=== PATIENT | female | born 1970 | race Caucasian/White ===

== ENCOUNTER 2018-10-24 13:30 | Inpatient (IN) | payer OTHER ==
[~2018-10-24] VITALS: Ht 165.1 cm; Wt 124.7 kg
[2018-10-24] MEDS ORDERED: FAMOTIDINE 20 MG/2 ML VIAL IVP ONE (13:45)
[2018-10-24] MEDS ORDERED: IV NORMAL SALINE 1000ML BAG 1,000 ML IV ONE ×2 (13:45→14:30)
[2018-10-24] MEDS ORDERED: ONDANSETRON PF 4 MG/2 ML VIAL. IV ONE (13:45)
--- NOTE | 2018-10-24 13:55 | PHYS DOC ---
Adult General Chief Complaint Chief Complaint: BRADYCARDIA HPI HPI Patient is a 48 year old female who presents with bradycardia. Patient states that she has been experiencing nausea, vomiting, diarrhea, and weakness for the past five days. Patient states that she was evaluated by her primary care physicians this morning for her symptoms where she was found to have a heart rate of 33 and was sent to the ED for further evaluation. Patient states that she has been out of all of her medication except for Xanaflex, Baclofen, Promethazine, and fentanyl patch for the past 36 hours. Patient states that she has been feeling weak and dizzy for the past few days. Patient denies any syncopal episodes. Review of Systems Review of Systems Constitutional: Denies fever or chills Eyes: Denies change in visual acuity, or eye pain HENT: Denies nasal congestion or sore throat Respiratory: Denies cough or shortness of breath Cardiovascular: Denies chest pain or palpitations GI: Reports nausea, vomiting, and diarrhea. : Denies dysuria or hematuria Musculoskeletal: Reports chronic muscle aches and back pain. Integument: Denies rash or skin lesions Neurologic: Denies headache, focal weakness or sensory changes Complete systems were reviewed and found to be within normal limits, except as documented in this note. Current Medications Current Medications Current Medications Medications (Trade) Dose Ordered Sig/Ute Start Time Stop Time Status Last Admin Dose Admin Famotidine (Pepcid Vial) 20 mg 1X ONCE 10/24/18 13:45 10/24/18 14:06 DC 10/24/18 14:29 20 MG Ondansetron HCl (Zofran) 4 mg 1X ONCE 10/24/18 13:45 10/24/18 14:06 DC 10/24/18 14:28 4 MG Sodium Chloride 1,000 ml @ 1,000 mls/hr 1X ONCE 10/24/18 13:45 10/24/18 14:44 DC 10/24/18 14:26 1,000 MLS/HR Allergies Allergies Allergies Coded Allergies Type Severity Reaction Last Updated Verified Penicillins Allergy Intermediate 10/24/18 Yes codeine Allergy Intermediate 10/24/18 Yes doxycycline Allergy Intermediate 10/24/18 Yes meperidine Allergy Intermediate 10/24/18 Yes Physical Exam Physical Exam Constitutional: awake, alert, in no acute distress. HENT: Normocephalic, atraumatic. Mucous membranes moist. Eyes: PERRL,conjunctiva normal, no discharge. Neck: Normal range of motion, no tenderness, supple, no stridor. Cardiovascular: Bradycardic. No murmur Lungs & Thorax: Bilateral breath sounds clear to auscultation Abdomen: Obese. Soft, minimal diffuse tenderness on palpation Skin: Warm, dry, no rash. Back: No midline tenderness, no CVA tenderness. [ Extremities: No tenderness, no cyanosis, ROM intact, no edema. Neurologic: Alert and oriented X 3, normal motor function, normal sensory function, no focal deficits noted. Psychologic: Affect normal. Speech normal. Current Patient Data Vital Signs Vital Signs Date Time Temp Pulse Resp B/P (MAP) Pulse Ox O2 Delivery O2 Flow Rate FiO2 10/24/18 13:30 98.4 38 18 193/92 (125) 96 Room Air 98.4 Lab Values Laboratory Tests Test 10/24/18 13:50 White Blood Count 9.1 x10^3/uL (4.0-11.0) Red Blood Count 4.59 x10^6/uL (3.50-5.40) Hemoglobin 12.4 g/dL (12.0-15.5) Hematocrit 38.4 % (36.0-47.0) Mean Corpuscular Volume 84 fL (79-100) Mean Corpuscular Hemoglobin 27 pg (25-35) Mean Corpuscular Hemoglobin Concent 32 g/dL (31-37) Red Cell Distribution Width 18.7 % (11.5-14.5) H Platelet Count 364 x10^3/uL (140-400) Neutrophils (%) (Auto) 64 % (31-73) Lymphocytes (%) (Auto) 29 % (24-48) Monocytes (%) (Auto) 5 % (0-9) Eosinophils (%) (Auto) 1 % (0-3) Basophils (%) (Auto) 1 % (0-3) Neutrophils # (Auto) 5.9 x10^3uL (1.8-7.7) Lymphocytes # (Auto) 2.7 x10^3/uL (1.0-4.8) Monocytes # (Auto) 0.5 x10^3/uL (0.0-1.1) Eosinophils # (Auto) 0.1 x10^3/uL (0.0-0.7) Basophils # (Auto) 0.0 x10^3/uL (0.0-0.2) Prothrombin Time 13.9 SEC (11.7-14.0) Prothrombin Time INR 1.1 (0.8-1.1) PTT 36 SEC (24-38) Sodium Level 141 mmol/L (136-145) Potassium Level 4.1 mmol/L (3.5-5.1) Chloride Level 103 mmol/L (98-107) Carbon Dioxide Level 25 mmol/L (21-32) Anion Gap 13 (6-14) Blood Urea Nitrogen 11 mg/dL (7-20) Creatinine 0.9 mg/dL (0.6-1.0) Estimated GFR (Cockcroft-Gault) 66.8 BUN/Creatinine Ratio 12 (6-20) Glucose Level 112 mg/dL (70-99) H Calcium Level 9.4 mg/dL (8.5-10.1) Magnesium Level 2.3 mg/dL (1.8-2.4) Total Bilirubin 0.5 mg/dL (0.2-1.0) Aspartate Amino Transferase (AST) 21 U/L (15-37) Alanine Aminotransferase (ALT) 15 U/L (14-59) Alkaline Phosphatase 119 U/L (46-116) H Creatine Kinase 112 U/L (26-192) Creatine Kinase MB (Mass) 0.8 ng/mL (0.0-3.6) Creatine Kinase MB Relative Index 0.7 % (0-4) Troponin I Quantitative < 0.017 ng/mL (0.000-0.055) DI-Nkm-Z-Type Natriuretic Peptide 1518 pg/mL (0-124) H Total Protein 8.5 g/dL (6.4-8.2) H Albumin 4.0 g/dL (3.4-5.0) Albumin/Globulin Ratio 0.9 (1.0-1.7) L Lipase 124 U/L (73-393) Thyroid Stimulating Hormone (TSH) 2.185 uIU/mL (0.358-3.74) Ethyl Alcohol Level < 10 mg/dL (0-10) Laboratory Tests 10/24/18 13:50 Laboratory Tests 10/24/18 13:50 EKG EKG @1337 sinus bradycardia at 40bpm, NO ST elevation Radiology/Procedures Radiology/Procedures [] Course & Med Decision Making Course & Med Decision Making Patient is a 48 year female who presents for bradycardia. Patient treated with Zofran, Pepcid, and 1L of normal saline in the ED. Pertinent Labs and Imaging studies reviewed. (See chart for details) Patient requiring admission for further evaluation and treatment. Discussed with Dr. Simon who is in agreement with admission. Discussed findings and plan with patient and family, who acknowledge understanding and agreement. Dragon Disclaimer Dragon Disclaimer This electronic medical record was generated, in whole or in part, using a voice recognition dictation system. Departure Departure Impression: Primary Impression: Bradycardia Additional Impressions: Nausea vomiting and diarrhea Dehydration Disposition: ADMITTED INPATIENT Admitting Physician: Other (tahira) Condition: GUARDED Critical Care Time Critical care time was 30 minutes which includes time at bedside, spent in discussion of patient's care with specialists and/or family members, with interpretation of laboratory and/or radiological studies and is exclusive of procedures. Problem Qualifiers ALDAIR TERRAZSA DO Oct 24, 2018 13:54
[2018-10-24 14:03] LABS: BASO % 1 % (0-3); EOS # 0.1 x10^3/uL (0.0-0.7); EOS % 1 % (0-3); HEMATOCRIT 38.4 % (36.0-47.0); HEMOGLOBIN 12.4 g/dL (12.0-15.5); LYMPH # 2.7 x10^3/uL (1.0-4.8); LYMPH % 29 % (24-48); MEAN CORPUSCULAR HEMOGLOBIN 27 pg (25-35); MEAN CORPUSCULAR HGB CONC 32 g/dL (31-37); MEAN CORPUSCULAR VOLUME 84 fL (79-100); MONO # 0.5 x10^3/uL (0.0-1.1); MONO % 5 % (0-9); NEUT # 5.9 x10^3uL (1.8-7.7); NEUT % 64 % (31-73); PLATELET COUNT 364 x10^3/uL (140-400); RED BLOOD COUNT 4.59 x10^6/uL (3.50-5.40); RED CELL DISTRIBUTION WIDTH 18.7 % (11.5-14.5); WHITE BLOOD COUNT 9.1 x10^3/uL (4.0-11.0)
[2018-10-24 14:14] LABS: CALCIUM 9.4 mg/dL (8.5-10.1); CREATININE 0.9 mg/dL (0.6-1.0); GFR 66.8; POTASSIUM 4.1 mmol/L (3.5-5.1); PROTHROMBIN TIME PATIENT 13.9 SEC (11.7-14.0)
[2018-10-24 14:20] LABS: ALBUMIN/GLOBULIN RATIO 0.9 (1.0-1.7); MAGNESIUM 2.3 mg/dL (1.8-2.4); TOTAL BILIRUBIN 0.5 mg/dL (0.2-1.0); TOTAL PROTEIN 8.5 g/dL (6.4-8.2)
--- NOTE | 2018-10-24 14:45 | EKG ---
[facility] [address] [place] [address] Test Date: 2018-10-24 Test Time: 13:37:06 Pat Name: MANOHAR SANTANA Department: Room: Gender: F Editorial Manager: FRANSISCA : 1970 Requested By: ALDAIR TERRAZAS Order Number: [id number] Reading MD: Anthony Ames Measurements Intervals [place] Rate: 40 P: 90 WI: 182 QRS: 17 QRSD: 100 T: 32 QT: 558 QTc: 457 Interpretive Statements SINUS BRADYCARDIA VENTRICULAR PREMATURE COMPLEX(ES) NON SPECIFIC QRS ABNORMALITY ABNORMAL ECG RI6.01 No previous ECG available for comparison Electronically Signed On 10-29-2018 13:24:56 CDT by Anthony Ames
--- NOTE | 2018-10-24 15:25 | PDOC2 ---
EMILIE INTERIANO REFINERY OPERATOR [facility] [facility] [facility] 10/24/18 1525: CARDIAC CONSULT DATE OF CONSULT Date of Consult DATE: 10/24/18 TIME: 15:23 REASON FOR CONSULT Reason for Consult: bradycardia REFERRING PHYSICIAN Referring Physician: Rae SOURCE Source: Chart review, Patient HISTORY OF PRESENT ILLNESS HISTORY OF PRESENT ILLNESS This is a pleasant 48 yo female admitted for complains of fatigue. Reports that she went to [facility] and was noted with slow HR and high BP and was told to go to [place] but no room over there so she came to [facility]. Reports that she was been having watery diarrhea now for about 3 days ranging from yellow watery stool to greenish. She does have malabsorptive issues due to gastric bypass but noone significant as this time and had diarrhea stools 10x at least yesterday. Her mouth has been feeling dry and had some dizziness but no passing out. No recent camping or use of antibiotics. Denies any chest pain, SOA, palpitations. She takes about 15 medications but does not recall taking any HTN meds. No DM2 as well. She has had 4 LHC with last one 8 yrs ago due to positive stress test but all of it came back negative for CAD. She has lost significant wt from her gastric bypass with her remote surgery. No hx of arrhythmias, VTE, falls or any injury but has been having nausse, no vomiting and has been having chills but no recorded fever. PAST MEDICAL HISTORY Cardiovascular: No pertinent hx Pulmonary: No pertinent hx CENTRAL NERVOUS SYSTEM: Other (No pertinent history) GI: Other (malabsorptive syndrome ) Heme/Onc: No pertinent hx Hepatobiliary: No pertinent hx Psych: No pertinent hx Musculoskeletal: low back pain, Osteoarthritis Rheumatologic: No pertinent hx Infectious disease: No pertinent hx ENT: No pertinent hx Renal/: No pertinent hx Endocrine: No pertinent hx Dermatology: No pertinent hx PAST SURGICAL HISTORY Past Surgical History: Tonsillectomy, Other (LMD, LHC; gastric bypass) FAMILY HISTORY Family History: Coronary Artery Disease (mother and father premature) SOCIAL HISTORY Smoke: No ALCOHOL: none Drugs: None Lives: with Family CURRENT MEDICATIONS CURRENT MEDICATIONS Current Medications Medications (Trade) Dose Ordered Sig/Ute Route PRN Reason Start Time Stop Time Status Last Admin Dose Admin Sodium Chloride 1,000 ml @ 1,000 mls/hr 1X ONCE IV 10/24/18 13:45 10/24/18 14:44 DC 10/24/18 14:26 Ondansetron HCl (Zofran) 4 mg 1X ONCE IV 10/24/18 13:45 10/24/18 14:06 DC 10/24/18 14:28 Famotidine (Pepcid Vial) 20 mg 1X ONCE IVP 10/24/18 13:45 10/24/18 14:06 DC 10/24/18 14:29 Sodium Chloride 1,000 ml @ 1,000 mls/hr 1X ONCE IV 10/24/18 14:30 10/24/18 15:29 10/24/18 14:33 ALLERGIES ALLERGIES: Coded Allergies: Penicillins (Verified Allergy, Intermediate, 10/24/18) codeine (Verified Allergy, Intermediate, 10/24/18) doxycycline (Verified Allergy, Intermediate, 10/24/18) meperidine (Verified Allergy, Intermediate, 10/24/18) ROS Review of System 14 point ROS evaluated with pertinent positives noted per HPI PHYSICAL EXAM General: Alert, Oriented X3, Cooperative, No acute distress HEENT: Mucous membr. moist/pink Heart: Regular rate (SR/SB), Normal S1, Normal S2, No murmurs Abdomen: Soft, No tenderness Extremities: No cyanosis, No edema Skin: No breakdown, No significant lesion Neuro: Normal speech, Sensation intact Psych/Mental Status: Mental status NL, Mood NL MUSCULOSKELETAL: Osteoarthritic changes both hands VITALS VITALS Vital Signs Date Time Temp Pulse Resp B/P (MAP) Pulse Ox O2 Delivery O2 Flow Rate FiO2 10/24/18 13:30 98.4 38 18 193/92 (125) 96 Room Air 98.4 LABS Lab: Laboratory Tests Test 10/24/18 13:50 White Blood Count 9.1 x10^3/uL (4.0-11.0) Red Blood Count 4.59 x10^6/uL (3.50-5.40) Hemoglobin 12.4 g/dL (12.0-15.5) Hematocrit 38.4 % (36.0-47.0) Mean Corpuscular Volume 84 fL (79-100) Mean Corpuscular Hemoglobin 27 pg (25-35) Mean Corpuscular Hemoglobin Concent 32 g/dL (31-37) Red Cell Distribution Width 18.7 % (11.5-14.5) Platelet Count 364 x10^3/uL (140-400) Neutrophils (%) (Auto) 64 % (31-73) Lymphocytes (%) (Auto) 29 % (24-48) Monocytes (%) (Auto) 5 % (0-9) Eosinophils (%) (Auto) 1 % (0-3) Basophils (%) (Auto) 1 % (0-3) Neutrophils # (Auto) 5.9 x10^3uL (1.8-7.7) Lymphocytes # (Auto) 2.7 x10^3/uL (1.0-4.8) Monocytes # (Auto) 0.5 x10^3/uL (0.0-1.1) Eosinophils # (Auto) 0.1 x10^3/uL (0.0-0.7) Basophils # (Auto) 0.0 x10^3/uL (0.0-0.2) Prothrombin Time 13.9 SEC (11.7-14.0) Prothromb Time International Ratio 1.1 (0.8-1.1) Activated Partial Thromboplast Time 36 SEC (24-38) Sodium Level 141 mmol/L (136-145) Potassium Level 4.1 mmol/L (3.5-5.1) Chloride Level 103 mmol/L (98-107) Carbon Dioxide Level 25 mmol/L (21-32) Anion Gap 13 (6-14) Blood Urea Nitrogen 11 mg/dL (7-20) Creatinine 0.9 mg/dL (0.6-1.0) Estimated GFR (Cockcroft-Gault) 66.8 BUN/Creatinine Ratio 12 (6-20) Glucose Level 112 mg/dL (70-99) Calcium Level 9.4 mg/dL (8.5-10.1) Magnesium Level 2.3 mg/dL (1.8-2.4) Total Bilirubin 0.5 mg/dL (0.2-1.0) Aspartate Amino Transf (AST/SGOT) 21 U/L (15-37) Alanine Aminotransferase (ALT/SGPT) 15 U/L (14-59) Alkaline Phosphatase 119 U/L (46-116) Creatine Kinase 112 U/L (26-192) Creatine Kinase MB (Mass) 0.8 ng/mL (0.0-3.6) Creatine Kinase MB Relative Index 0.7 % (0-4) Troponin I Quantitative < 0.017 ng/mL (0.000-0.055) NX-Wgz-[id number]-Type Natriuretic Peptide 1518 pg/mL (0-124) Total Protein 8.5 g/dL (6.4-8.2) Albumin 4.0 g/dL (3.4-5.0) Albumin/Globulin Ratio 0.9 (1.0-1.7) Lipase 124 U/L (73-393) Ethyl Alcohol Level < 10 mg/dL (0-10) ASSESSMENT/PLAN ASSESSMENT/PLAN 1. Asymptomatic SB: likely due to metabolic issues and contributing HTN. QTc 456 2. HTN urgency 3. Worsening Diarrhea 4. Morbid obesity with notable malabsorptive syndrome with past gastric bypass 5. Polypharmacy: reported 15 meds. Recommendations 1. TSH, TTE 2. IVF have been given in ED 3. Obtain accurate med list 4. Start norvasc and lisinopril. Hydralazine IV PRN. PAWEL YEN MD 10/24/18 2456: CARDIAC CONSULT ASSESSMENT/PLAN ASSESSMENT/PLAN Pt. seen and examined. Agree with above Milk Pickup Driver note. EKG with sinus neftaly. Polypharmacy may be an issue as noted above as she is on multiple pain/psych drugs. No clear indication for pacer at this time with GI issues etc. No syncope which is reassuring. when able, will walk and determine if she has chronotropic response. Event monitor on DC. Thanks EMILIE INTERIANO APRN Oct 24, 2018 15:25 PAWEL YEN MD Oct 24, 2018 18:58
[2018-10-24 16:01] LABS: BARBITURATES NEG (NEG); BENZODIAZEPINES NEG (NEG); CANNABINOIDS NEG (NEG); COCAINE NEG (NEG); METHADONE NEG (NEG); OPIATES NEG (NEG); PHENCYCLIDINE NEG (NEG)
[2018-10-24 16:02] LABS: AMPHETAMINE/METHAMPHETAMINE NEG (NEG)
--- NOTE | 2018-10-24 16:06 | NUR ---
Patient arrived to room 261 via bed from ER at 1606. Patient A&OX4. No complaints of pain. Complaints of diarrhea. Patient neftaly with hypertension. Will continue to monitor.
[2018-10-24 16:15] VITALS: BP 205/84
[2018-10-24 16:19] LABS: BILIRUBIN,URINE NEGATIVE (NEG); CLARITY,URINE CLEAR; COLOR,URINE YELLOW; NITRITE,URINE NEGATIVE (NEG); PH,URINE 5.5; PROTEIN,URINE NEGATIVE (NEG-TRACE); UROBILINOGEN,URINE 0.2 mg/dL (0.2 mg/dL)
[2018-10-24 16:28] LABS: BACTERIA,URINE 0 /HPF (0-FEW); SQUAMOUS EPITHELIAL CELL,UR MOD /LPF
[2018-10-24] MEDS: hydrALAZINE 20 MG/ML VIAL. IVP PRN (16:42)
[2018-10-24] MEDS: amLODIPine BESYLATE 10 MG TABLET PO SCH (17:47)
--- NOTE | 2018-10-24 18:24 | PDOC1 ---
History and Physical Date of Admission Date of Admission DATE: 10/24/18 TIME: 18:13 Identification/Chief Complaint Chief Complaint diarrhea Problems: (1) Dehydration (2) Bradycardia (3) Nausea vomiting and diarrhea Source Source: Chart review, Patient History of Present Illness History of Present Illness 48 yo female admitted for complains of fatigue and watery diarrhea for 4 days, greenish-yellowish, no blood. approximately 8-10 episodes yesterday. patient s/ p gastric bypass in 2007. patient with poor PO intake and with headache. no recent abx use or travel. patient does take multiple meds 15-20 she says. patient found to be bradycardic in ED. patient had LHC 8 years ago due to + stress test but LHC negative. denies hx of arrhythmias, no fevers chilles. no vomiting but + nausea. no hx of colo. in ED HR 30s. patient started on fluids. BNP >1500 Past Medical History Cardiovascular: No pertinent hx Pulmonary: No pertinent hx CENTRAL NERVOUS SYSTEM: Other (No pertinent history) GI: Other (malabsorptive syndrome ) Heme/Onc: No pertinent hx Hepatobiliary: No pertinent hx Psych: No pertinent hx Musculoskeletal: low back pain, Osteoarthritis Rheumatologic: No pertinent hx Infectious disease: No pertinent hx ENT: No pertinent hx Renal/: No pertinent hx Endocrine: No pertinent hx Dermatology: No pertinent hx Past Surgical History Past Surgical History: Tonsillectomy, Other (LMD, LHC; gastric bypass) Family History Family History: Coronary Artery Disease (mother and father premature) Social History Smoke: No ALCOHOL: none Drugs: None Current Problem List Problem List Problems Medical Problems: (1) Bradycardia Status: Acute (2) Dehydration Status: Acute (3) Nausea vomiting and diarrhea Status: Acute Current Medications Current Medications Current Medications Sodium Chloride 1,000 ml @ 1,000 mls/hr 1X ONCE IV Last administered on at 14:26; Start 10/24/18 at 13:45; Stop 10/24/18 at 14:44; Status DC Ondansetron HCl (Zofran) 4 mg 1X ONCE IV Last administered on 10/24/18at 14:28 ; Start 10/24/18 at 13:45; Stop 10/24/18 at 14:06; Status DC Famotidine (Pepcid Vial) 20 mg 1X ONCE IVP Last administered on 10/24/18at 14: 29; Start 10/24/18 at 13:45; Stop 10/24/18 at 14:06; Status DC Sodium Chloride 1,000 ml @ 1,000 mls/hr 1X ONCE IV Last administered on at 14:33; Start 10/24/18 at 14:30; Stop 10/24/18 at 15:29; Status DC Ondansetron HCl (Zofran) 4 mg PRN Q8HRS PRN IV NAUSEA/VOMITING; Start 10/24/18 at 14:30; Stop 10/25/18 at 14:29 Amlodipine Besylate (Norvasc) 10 mg DAILY PO Last administered on 10/24/18at 17: 47; Start 10/24/18 at 16:30 Hydralazine HCl (Apresoline Inj) 10 mg PRN Q4HRS PRN IVP ELEVATED BP, SEE COMMENTS Last administered on 10/24/18at 16:42; Start 10/24/18 at 16:30 Lisinopril (Prinivil) 20 mg DAILY PO ; Start 10/25/18 at 09:00 Allergies Allergies: Coded Allergies: Penicillins (Verified Allergy, Intermediate, 10/24/18) codeine (Verified Allergy, Intermediate, 10/24/18) doxycycline (Verified Allergy, Intermediate, 10/24/18) meperidine (Verified Allergy, Intermediate, 10/24/18) ROS Review of System CONSTITUTIONAL: No fever or chills EYES: No recent changes SKIN: No rash or itching CARDIOVASCULAR: No chest pain, syncope, palpitations, or edema RESPIRATORY: No SOB or cough GASTROINTESTINAL: No nausea, vomiting or abdominal pain NEUROLOGICAL: No headaches or weakness ENDOCRINE: No cold or heat intolerance GENITOURINARY: No urgency or frequency of urination MUSCULOSKELETAL: No back pain or joint pain LYMPHATICS: No enlarged lymph nodes PSYCHIATRIC: No anxiety or depression Physical Exam Physical Exam GENERAL: No apparent distress. Alert and oriented. HEENT: Head normocephalic, atraumatic. NECK: Supple LUNGS: Clear to auscultation. HEART: RRR, S1, S2 present, pulses intact ABDOMEN: Soft, positive bowel sounds. EXTREMITIES: No cyanosis or edema. NEUROLOGIC: Normal speech, normal tone PSYCHIATRIC: Normal affect, normal mood. SKIN: No ulceration. Vitals Vitals Vital Signs Date Time Temp Pulse Resp B/P (MAP) Pulse Ox O2 Delivery O2 Flow Rate FiO2 10/24/18 17:47 74 142/64 10/24/18 16:15 98.0 99 Room Air 98.0 10/24/18 15:09 18 Labs Labs Laboratory Tests Test 10/24/18 13:50 10/24/18 15:42 White Blood Count 9.1 x10^3/uL (4.0-11.0) Red Blood Count 4.59 x10^6/uL (3.50-5.40) Hemoglobin 12.4 g/dL (12.0-15.5) Hematocrit 38.4 % (36.0-47.0) Mean Corpuscular Volume 84 fL (79-100) Mean Corpuscular Hemoglobin 27 pg (25-35) Mean Corpuscular Hemoglobin Concent 32 g/dL (31-37) Red Cell Distribution Width 18.7 % (11.5-14.5) Platelet Count 364 x10^3/uL (140-400) Neutrophils (%) (Auto) 64 % (31-73) Lymphocytes (%) (Auto) 29 % (24-48) Monocytes (%) (Auto) 5 % (0-9) Eosinophils (%) (Auto) 1 % (0-3) Basophils (%) (Auto) 1 % (0-3) Neutrophils # (Auto) 5.9 x10^3uL (1.8-7.7) Lymphocytes # (Auto) 2.7 x10^3/uL (1.0-4.8) Monocytes # (Auto) 0.5 x10^3/uL (0.0-1.1) Eosinophils # (Auto) 0.1 x10^3/uL (0.0-0.7) Basophils # (Auto) 0.0 x10^3/uL (0.0-0.2) Prothrombin Time 13.9 SEC (11.7-14.0) Prothromb Time International Ratio 1.1 (0.8-1.1) Activated Partial Thromboplast Time 36 SEC (24-38) Sodium Level 141 mmol/L (136-145) Potassium Level 4.1 mmol/L (3.5-5.1) Chloride Level 103 mmol/L (98-107) Carbon Dioxide Level 25 mmol/L (21-32) Anion Gap 13 (6-14) Blood Urea Nitrogen 11 mg/dL (7-20) Creatinine 0.9 mg/dL (0.6-1.0) Estimated GFR (Cockcroft-Gault) 66.8 BUN/Creatinine Ratio 12 (6-20) Glucose Level 112 mg/dL (70-99) Calcium Level 9.4 mg/dL (8.5-10.1) Magnesium Level 2.3 mg/dL (1.8-2.4) Total Bilirubin 0.5 mg/dL (0.2-1.0) Aspartate Amino Transf (AST/SGOT) 21 U/L (15-37) Alanine Aminotransferase (ALT/SGPT) 15 U/L (14-59) Alkaline Phosphatase 119 U/L (46-116) Creatine Kinase 112 U/L (26-192) Creatine Kinase MB (Mass) 0.8 ng/mL (0.0-3.6) Creatine Kinase MB Relative Index 0.7 % (0-4) Troponin I Quantitative < 0.017 ng/mL (0.000-0.055) IK-Yeq-U-Type Natriuretic Peptide 1518 pg/mL (0-124) Total Protein 8.5 g/dL (6.4-8.2) Albumin 4.0 g/dL (3.4-5.0) Albumin/Globulin Ratio 0.9 (1.0-1.7) Lipase 124 U/L (73-393) Thyroid Stimulating Hormone (TSH) 2.185 uIU/mL (0.358-3.74) Ethyl Alcohol Level < 10 mg/dL (0-10) Urine Collection Type Unknown Urine Color Yellow Urine Clarity Clear Urine pH 5.5 Urine Specific [place] 1.010 Urine Protein Negative mg/dL (NEG-TRACE) Urine Glucose (UA) Negative mg/dL (NEG) Urine Ketones (Stick) Negative mg/dL (NEG) Urine Blood Trace (NEG) Urine Nitrite Negative (NEG) Urine Bilirubin Negative (NEG) Urine Urobilinogen Dipstick 0.2 mg/dL (0.2 mg/dL) Urine Leukocyte Esterase Small (NEG) Urine RBC 1-2 /HPF (0-2) Urine WBC 1-4 /HPF (0-4) Urine Squamous Epithelial Cells Mod /LPF Urine Bacteria 0 /HPF (0-FEW) Urine Mucus Mod /LPF Urine Opiates Screen Neg (NEG) Urine Methadone Screen Neg (NEG) Urine Barbiturates Neg (NEG) Urine Phencyclidine Screen Neg (NEG) Urine Amphetamine/Methamphetamine Neg (NEG) Urine Benzodiazepines Screen Neg (NEG) Urine Cocaine Screen Neg (NEG) Urine Cannabinoids Screen Neg (NEG) Urine Ethyl Alcohol Neg (NEG) Laboratory Tests Test 10/24/18 13:50 10/24/18 15:42 White Blood Count 9.1 x10^3/uL (4.0-11.0) Red Blood Count 4.59 x10^6/uL (3.50-5.40) Hemoglobin 12.4 g/dL (12.0-15.5) Hematocrit 38.4 % (36.0-47.0) Mean Corpuscular Volume 84 fL (79-100) Mean Corpuscular Hemoglobin 27 pg (25-35) Mean Corpuscular Hemoglobin Concent 32 g/dL (31-37) Red Cell Distribution Width 18.7 % (11.5-14.5) Platelet Count 364 x10^3/uL (140-400) Neutrophils (%) (Auto) 64 % (31-73) Lymphocytes (%) (Auto) 29 % (24-48) Monocytes (%) (Auto) 5 % (0-9) Eosinophils (%) (Auto) 1 % (0-3) Basophils (%) (Auto) 1 % (0-3) Neutrophils # (Auto) 5.9 x10^3uL (1.8-7.7) Lymphocytes # (Auto) 2.7 x10^3/uL (1.0-4.8) Monocytes # (Auto) 0.5 x10^3/uL (0.0-1.1) Eosinophils # (Auto) 0.1 x10^3/uL (0.0-0.7) Basophils # (Auto) 0.0 x10^3/uL (0.0-0.2) Prothrombin Time 13.9 SEC (11.7-14.0) Prothromb Time International Ratio 1.1 (0.8-1.1) Activated Partial Thromboplast Time 36 SEC (24-38) Sodium Level 141 mmol/L (136-145) Potassium Level 4.1 mmol/L (3.5-5.1) Chloride Level 103 mmol/L (98-107) Carbon Dioxide Level 25 mmol/L (21-32) Anion Gap 13 (6-14) Blood Urea Nitrogen 11 mg/dL (7-20) Creatinine 0.9 mg/dL (0.6-1.0) Estimated GFR (Cockcroft-Gault) 66.8 BUN/Creatinine Ratio 12 (6-20) Glucose Level 112 mg/dL (70-99) Calcium Level 9.4 mg/dL (8.5-10.1) Magnesium Level 2.3 mg/dL (1.8-2.4) Total Bilirubin 0.5 mg/dL (0.2-1.0) Aspartate Amino Transf (AST/SGOT) 21 U/L (15-37) Alanine Aminotransferase (ALT/SGPT) 15 U/L (14-59) Alkaline Phosphatase 119 U/L (46-116) Creatine Kinase 112 U/L (26-192) Creatine Kinase MB (Mass) 0.8 ng/mL (0.0-3.6) Creatine Kinase MB Relative Index 0.7 % (0-4) Troponin I Quantitative < 0.017 ng/mL (0.000-0.055) HX-Aly-B-Type Natriuretic Peptide 1518 pg/mL (0-124) Total Protein 8.5 g/dL (6.4-8.2) Albumin 4.0 g/dL (3.4-5.0) Albumin/Globulin Ratio 0.9 (1.0-1.7) Lipase 124 U/L (73-393) Thyroid Stimulating Hormone (TSH) 2.185 uIU/mL (0.358-3.74) Ethyl Alcohol Level < 10 mg/dL (0-10) Urine Collection Type Unknown Urine Color Yellow Urine Clarity Clear Urine pH 5.5 Urine Specific [place] 1.010 Urine Protein Negative mg/dL (NEG-TRACE) Urine Glucose (UA) Negative mg/dL (NEG) Urine Ketones (Stick) Negative mg/dL (NEG) Urine Blood Trace (NEG) Urine Nitrite Negative (NEG) Urine Bilirubin Negative (NEG) Urine Urobilinogen Dipstick 0.2 mg/dL (0.2 mg/dL) Urine Leukocyte Esterase Small (NEG) Urine RBC 1-2 /HPF (0-2) Urine WBC 1-4 /HPF (0-4) Urine Squamous Epithelial Cells Mod /LPF Urine Bacteria 0 /HPF (0-FEW) Urine Mucus Mod /LPF Urine Opiates Screen Neg (NEG) Urine Methadone Screen Neg (NEG) Urine Barbiturates Neg (NEG) Urine Phencyclidine Screen Neg (NEG) Urine Amphetamine/Methamphetamine Neg (NEG) Urine Benzodiazepines Screen Neg (NEG) Urine Cocaine Screen Neg (NEG) Urine Cannabinoids Screen Neg (NEG) Urine Ethyl Alcohol Neg (NEG) VTE Prophylaxis Ordered VTE Prophylaxis Devices: Yes VTE Pharmacological Prophylaxi: Yes Assessment/Plan Assessment/Plan ASSESSMENT Diarrhea Asymptomatic Bradycardia UC HTN Obesity, s/p gastric bypass sx Multple home meds PLAN admit to tele bed IVF watch on monitor cards consult check TTE check TSH agree with norvasc and GUILLORY for UC BP need to clarify home meds consult GI given diarrhea check stool studies dvt ppx: heparin full code need to clarify all home meds. RADHAMES LESTER MD Oct 24, 2018 18:24
[2018-10-24] MEDS: ONDANSETRON PF 4 MG/2 ML VIAL. IV PRN (19:01)
[2018-10-24] MEDS ORDERED: TIZA6CAP PO (19:41)
[2018-10-24] MEDS ORDERED: HYDR8TAB PO (19:41)
[2018-10-24] MEDS ORDERED: CETI10TA16 PO (19:41)
[2018-10-24] MEDS ORDERED: ESCITALOPRAM OX20 MG PO (19:41)
[2018-10-24] MEDS ORDERED: TIZA4TAB PO (19:41)
[2018-10-24] MEDS ORDERED: ZOLP12.54 PO (19:41)
[2018-10-24] MEDS ORDERED: FENT1PAT13 TP (19:41)
[2018-10-24] MEDS ORDERED: CYAN10002 IJ (19:41)
[2018-10-24] MEDS ORDERED: NYST15PO9 TP (19:41)
[2018-10-24] MEDS ORDERED: PANT20TA2 PO (19:41)
[2018-10-24] MEDS ORDERED: DOXE10CA PO (19:41)
[2018-10-24] MEDS ORDERED: BACL10TA PO (19:41)
[2018-10-24] MEDS ORDERED: GABA600T7 PO ×2 (19:41)
[2018-10-24] MEDS ORDERED: PREG150C PO (19:41)
[2018-10-24] MEDS ORDERED: BUSP10TA PO (19:41)
[2018-10-24 19:50] VITALS: BP 159/77
[2018-10-24] MEDS: BACLOFEN 10 MG TABLET. PO PRN (20:24)
[2018-10-24] MEDS: ZOLPIDEM 5 MG TABLET. PO PRN (20:24)
[2018-10-24] MEDS: GABAPENTIN 400 MG CAPSULE. PO PRN (20:25)
[2018-10-24] MEDS: tiZANidine 4 MG TABLET. PO PRN (20:25)
[2018-10-24] MEDS: HYDROmorphone 4 MG TABLET PO PRN (20:25)
[2018-10-24] MEDS: busPIRone 10 MG TABLET. PO SCH (20:26)
[2018-10-24] MEDS: CETIRIZINE HCL 10 MG TABLET. PO SCH (20:26)
[2018-10-24] MEDS: PREGABALIN 75 MG CAPSULE PO SCH (20:26)
[2018-10-24] MEDS: GABAPENTIN 300 MG CAPSULE. PO SCH (20:27)
[2018-10-24] MEDS: CITALOPRAM 20 MG TABLET. PO SCH (20:27)
[2018-10-24] MEDS: IV 1/2 NORMAL SALINE 1,000 ML IV SCH (20:30)
[2018-10-24] MEDS: DOXEPIN HCL 10 MG CAPSULE. PO SCH (20:51)
[2018-10-24] MEDS: NYSTATIN TOPICAL POWDER 15GM BOTTLE. TP SCH (20:53)
[2018-10-24] MEDS: HEPARIN for SUB-Q USE 5,000 UNIT/ML VIAL. SQ SCH (20:54)
[2018-10-24 21:23] LABS: FECAL OB PT NEGATIVE (NEG)
[2018-10-24 23:38] VITALS: BP 145/71
[2018-10-25 03:39] VITALS: BP 149/74
[2018-10-25] MEDS: ACETAMINOPHEN 325 MG TABLET. PO PRN (04:14)
[2018-10-25] MEDS: HEPARIN for SUB-Q USE 5,000 UNIT/ML VIAL. SQ SCH ×3 (05:44→22:00)
[2018-10-25] MEDS: IV 1/2 NORMAL SALINE 1,000 ML IV SCH ×2 (05:46→16:56)
[2018-10-25 07:00] VITALS: BP 167/77
[2018-10-25] MEDS: busPIRone 10 MG TABLET. PO SCH ×3 (07:35→21:10)
[2018-10-25] MEDS: PANTOPRAZOLE 40 MG TABLET.DR. PO SCH (07:35)
[2018-10-25] MEDS: GABAPENTIN 300 MG CAPSULE. PO SCH ×3 (07:36→21:00)
[2018-10-25] MEDS: PREGABALIN 75 MG CAPSULE PO SCH ×3 (07:36→21:11)
[2018-10-25] MEDS: HYDROmorphone 4 MG TABLET PO PRN ×3 (07:38→21:11)
[2018-10-25] MEDS: NYSTATIN TOPICAL POWDER 15GM BOTTLE. TP SCH ×2 (09:00→21:00)
[2018-10-25] MEDS: amLODIPine BESYLATE 10 MG TABLET PO SCH (09:04)
[2018-10-25] MEDS: ONDANSETRON PF 4 MG/2 ML VIAL. IV PRN (09:06)
[2018-10-25] MEDS: LISINOPRIL 20 MG TABLET PO SCH (09:07)
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
--- NOTE | 2018-10-25 10:37 | NUR ---
NN : Persistent BENDER w/o relief from earlier Tylenol. Am meds given (including dilaudid). Reassessment w very little relief even w all prescribed meds. Reports "Hx migraines years ago" but none recently. Encouraged conversation w with visit. Intermittent nausea -zofran as ordered. Refused breakfast...upsets stomach. Able to keep meds and fluids down this am.
[2018-10-25 11:05] VITALS: BP 175/81
--- NOTE | 2018-10-25 11:25 | RAD ---
CT HEAD WITHOUT CONTRAST 10/25/2018 10:44 AM Indication: Headache, Comparison: None Procedure: Multidetector CT imaging of the head was performed without the administration of contrast. Findings: There is no evidence of acute intracranial hemorrhage. There is no evidence of acute territorial infarction. Please note that CT is limited for evaluation of acute ischemia. No mass effect or midline shift is identified . The ventricles and basilar cisterns have an appropriate appearance. No abnormal extra-axial fluid collections are seen. No acute osseous changes are identified. Mucosal thickening noted within the ethmoid air cells. Both secretions noted in the sphenoid sinus. Sinusitis not excluded. Possible mucosal retention cyst seen in the right maxillary sinus. Impression: 1.No evidence of acute intracranial abnormality 2. Areas of mucosal thickening within the maxillary sinuses and ethmoid air cells with bubbly secretions in the right sphenoid sinus. Acute sinusitis not excluded. CT DOSING PQRS STATEMENT: One or more of the following individualized dose reduction techniques were utilized for this examination: 1. Automated exposure control 2. Adjustment of the mA and/or kV according to patient size 3. Use of iterative reconstruction technique Electronically signed by: Yogesh Ulloa MD (10/25/2018 11:23 AM) [id number]
--- NOTE | 2018-10-25 12:09 | NUR ---
SS following for discharge planning. SS reviewed pt chart. Pt is from home with spouse and is currently on room air. No discharge needs noted at this time. SS will continue to follow for pending discharge needs.
[2018-10-25] MEDS ORDERED: PROCHLORPERAZINE 10 MG/2 ML VIAL. IV ONE (12:15)
--- NOTE | 2018-10-25 12:22 | PDOC ---
PROGRESS NOTES Chief Complaint Chief Complaint Diarrhea Asymptomatic Bradycardia UC HTN Obesity, s/p gastric bypass sx Multple home meds History of Present Illness History of Present Illness 48 yo female admitted for complains of fatigue and watery diarrhea for 4 days, greenish-yellowish, no blood. approximately 8-10 episodes yesterday. patient s/ p gastric bypass in 2007. patient with poor PO intake and with headache. no recent abx use or travel. patient does take multiple meds 15-20 she says. patient found to be bradycardic in ED. patient had LHC 8 years ago due to + stress test but LHC negative. denies hx of arrhythmias, no fevers chilles. no vomiting but + nausea. no hx of colo. in ED HR 30s. patient started on fluids. BNP >1500. Less stools today, had a headache. CT shows sinus congestion, otherwise WNL. Plan: IV compazine for BENDER, f/u GI recs, cardiology recs Vitals Vitals Vital Signs Date Time Temp Pulse Resp B/P (MAP) Pulse Ox O2 Delivery O2 Flow Rate FiO2 10/25/18 11:05 98.7 72 18 175/81 (112) 96 Room Air 98.7 Physical Exam General: Alert, Oriented X3, Cooperative, No acute distress Heart: Regular rate (SR/SB), Normal S1, Normal S2, No murmurs Abdomen: Soft, No tenderness Extremities: No cyanosis, No edema Skin: No breakdown, No significant lesion Labs LABS Laboratory Tests Test 10/24/18 13:50 10/24/18 15:42 10/24/18 17:40 10/24/18 21:00 White Blood Count 9.1 x10^3/uL (4.0-11.0) Red Blood Count 4.59 x10^6/uL (3.50-5.40) Hemoglobin 12.4 g/dL (12.0-15.5) Hematocrit 38.4 % (36.0-47.0) Mean Corpuscular Volume 84 fL (79-100) Mean Corpuscular Hemoglobin 27 pg (25-35) Mean Corpuscular Hemoglobin Concent 32 g/dL (31-37) Red Cell Distribution Width 18.7 % (11.5-14.5) Platelet Count 364 x10^3/uL (140-400) Neutrophils (%) (Auto) 64 % (31-73) Lymphocytes (%) (Auto) 29 % (24-48) Monocytes (%) (Auto) 5 % (0-9) Eosinophils (%) (Auto) 1 % (0-3) Basophils (%) (Auto) 1 % (0-3) Neutrophils # (Auto) 5.9 x10^3uL (1.8-7.7) Lymphocytes # (Auto) 2.7 x10^3/uL (1.0-4.8) Monocytes # (Auto) 0.5 x10^3/uL (0.0-1.1) Eosinophils # (Auto) 0.1 x10^3/uL (0.0-0.7) Basophils # (Auto) 0.0 x10^3/uL (0.0-0.2) Prothrombin Time 13.9 SEC (11.7-14.0) Prothromb Time International Ratio 1.1 (0.8-1.1) Activated Partial Thromboplast Time 36 SEC (24-38) Sodium Level 141 mmol/L (136-145) Potassium Level 4.1 mmol/L (3.5-5.1) Chloride Level 103 mmol/L (98-107) Carbon Dioxide Level 25 mmol/L (21-32) Anion Gap 13 (6-14) Blood Urea Nitrogen 11 mg/dL (7-20) Creatinine 0.9 mg/dL (0.6-1.0) Estimated GFR (Cockcroft-Gault) 66.8 BUN/Creatinine Ratio 12 (6-20) Glucose Level 112 mg/dL (70-99) Calcium Level 9.4 mg/dL (8.5-10.1) Magnesium Level 2.3 mg/dL (1.8-2.4) Total Bilirubin 0.5 mg/dL (0.2-1.0) Aspartate Amino Transf (AST/SGOT) 21 U/L (15-37) Alanine Aminotransferase (ALT/SGPT) 15 U/L (14-59) Alkaline Phosphatase 119 U/L (46-116) Creatine Kinase 112 U/L (26-192) Creatine Kinase MB (Mass) 0.8 ng/mL (0.0-3.6) Creatine Kinase MB Relative Index 0.7 % (0-4) Troponin I Quantitative < 0.017 ng/mL (0.000-0.055) < 0.017 ng/mL (0.000-0.055) < 0.017 ng/mL (0.000-0.055) KG-Kne-R-Type Natriuretic Peptide 1518 pg/mL (0-124) Total Protein 8.5 g/dL (6.4-8.2) Albumin 4.0 g/dL (3.4-5.0) Albumin/Globulin Ratio 0.9 (1.0-1.7) Lipase 124 U/L (73-393) Thyroid Stimulating Hormone (TSH) 2.185 uIU/mL (0.358-3.74) Ethyl Alcohol Level < 10 mg/dL (0-10) Urine Collection Type Unknown Urine Color Yellow Urine Clarity Clear Urine pH 5.5 Urine Specific [place] 1.010 Urine Protein Negative mg/dL (NEG-TRACE) Urine Glucose (UA) Negative mg/dL (NEG) Urine Ketones (Stick) Negative mg/dL (NEG) Urine Blood Trace (NEG) Urine Nitrite Negative (NEG) Urine Bilirubin Negative (NEG) Urine Urobilinogen Dipstick 0.2 mg/dL (0.2 mg/dL) Urine Leukocyte Esterase Small (NEG) Urine RBC 1-2 /HPF (0-2) Urine WBC 1-4 /HPF (0-4) Urine Squamous Epithelial Cells Mod /LPF Urine Bacteria 0 /HPF (0-FEW) Urine Mucus Mod /LPF Stool Occult Blood Negative (NEG) Urine Opiates Screen Neg (NEG) Urine Methadone Screen Neg (NEG) Urine Barbiturates Neg (NEG) Urine Phencyclidine Screen Neg (NEG) Urine Amphetamine/Methamphetamine Neg (NEG) Urine Benzodiazepines Screen Neg (NEG) Urine Cocaine Screen Neg (NEG) Urine Cannabinoids Screen Neg (NEG) Urine Ethyl Alcohol Neg (NEG) Assessment and Plan Assessmemt and Plan Problems Medical Problems: (1) Bradycardia Status: Acute (2) Dehydration Status: Acute (3) Nausea vomiting and diarrhea Status: Acute Comment Review of Relevant I have reviewed the following items yari (where applicable) has been applied. Labs Laboratory Tests Test 10/24/18 13:50 10/24/18 15:42 10/24/18 17:40 10/24/18 21:00 White Blood Count 9.1 x10^3/uL (4.0-11.0) Red Blood Count 4.59 x10^6/uL (3.50-5.40) Hemoglobin 12.4 g/dL (12.0-15.5) Hematocrit 38.4 % (36.0-47.0) Mean Corpuscular Volume 84 fL (79-100) Mean Corpuscular Hemoglobin 27 pg (25-35) Mean Corpuscular Hemoglobin Concent 32 g/dL (31-37) Red Cell Distribution Width 18.7 % (11.5-14.5) Platelet Count 364 x10^3/uL (140-400) Neutrophils (%) (Auto) 64 % (31-73) Lymphocytes (%) (Auto) 29 % (24-48) Monocytes (%) (Auto) 5 % (0-9) Eosinophils (%) (Auto) 1 % (0-3) Basophils (%) (Auto) 1 % (0-3) Neutrophils # (Auto) 5.9 x10^3uL (1.8-7.7) Lymphocytes # (Auto) 2.7 x10^3/uL (1.0-4.8) Monocytes # (Auto) 0.5 x10^3/uL (0.0-1.1) Eosinophils # (Auto) 0.1 x10^3/uL (0.0-0.7) Basophils # (Auto) 0.0 x10^3/uL (0.0-0.2) Prothrombin Time 13.9 SEC (11.7-14.0) Prothromb Time International Ratio 1.1 (0.8-1.1) Activated Partial Thromboplast Time 36 SEC (24-38) Sodium Level 141 mmol/L (136-145) Potassium Level 4.1 mmol/L (3.5-5.1) Chloride Level 103 mmol/L (98-107) Carbon Dioxide Level 25 mmol/L (21-32) Anion Gap 13 (6-14) Blood Urea Nitrogen 11 mg/dL (7-20) Creatinine 0.9 mg/dL (0.6-1.0) Estimated GFR (Cockcroft-Gault) 66.8 BUN/Creatinine Ratio 12 (6-20) Glucose Level 112 mg/dL (70-99) Calcium Level 9.4 mg/dL (8.5-10.1) Magnesium Level 2.3 mg/dL (1.8-2.4) Total Bilirubin 0.5 mg/dL (0.2-1.0) Aspartate Amino Transf (AST/SGOT) 21 U/L (15-37) Alanine Aminotransferase (ALT/SGPT) 15 U/L (14-59) Alkaline Phosphatase 119 U/L (46-116) Creatine Kinase 112 U/L (26-192) Creatine Kinase MB (Mass) 0.8 ng/mL (0.0-3.6) Creatine Kinase MB Relative Index 0.7 % (0-4) Troponin I Quantitative < 0.017 ng/mL (0.000-0.055) < 0.017 ng/mL (0.000-0.055) < 0.017 ng/mL (0.000-0.055) OJ-Qex-V-Type Natriuretic Peptide 1518 pg/mL (0-124) Total Protein 8.5 g/dL (6.4-8.2) Albumin 4.0 g/dL (3.4-5.0) Albumin/Globulin Ratio 0.9 (1.0-1.7) Lipase 124 U/L (73-393) Thyroid Stimulating Hormone (TSH) 2.185 uIU/mL (0.358-3.74) Ethyl Alcohol Level < 10 mg/dL (0-10) Urine Collection Type Unknown Urine Color Yellow Urine Clarity Clear Urine pH 5.5 Urine Specific [place] 1.010 Urine Protein Negative mg/dL (NEG-TRACE) Urine Glucose (UA) Negative mg/dL (NEG) Urine Ketones (Stick) Negative mg/dL (NEG) Urine Blood Trace (NEG) Urine Nitrite Negative (NEG) Urine Bilirubin Negative (NEG) Urine Urobilinogen Dipstick 0.2 mg/dL (0.2 mg/dL) Urine Leukocyte Esterase Small (NEG) Urine RBC 1-2 /HPF (0-2) Urine WBC 1-4 /HPF (0-4) Urine Squamous Epithelial Cells Mod /LPF Urine Bacteria 0 /HPF (0-FEW) Urine Mucus Mod /LPF Stool Occult Blood Negative (NEG) Urine Opiates Screen Neg (NEG) Urine Methadone Screen Neg (NEG) Urine Barbiturates Neg (NEG) Urine Phencyclidine Screen Neg (NEG) Urine Amphetamine/Methamphetamine Neg (NEG) Urine Benzodiazepines Screen Neg (NEG) Urine Cocaine Screen Neg (NEG) Urine Cannabinoids Screen Neg (NEG) Urine Ethyl Alcohol Neg (NEG) Laboratory Tests Test 10/24/18 13:50 10/24/18 15:42 10/24/18 17:40 10/24/18 21:00 White Blood Count 9.1 x10^3/uL (4.0-11.0) Red Blood Count 4.59 x10^6/uL (3.50-5.40) Hemoglobin 12.4 g/dL (12.0-15.5) Hematocrit 38.4 % (36.0-47.0) Mean Corpuscular Volume 84 fL (79-100) Mean Corpuscular Hemoglobin 27 pg (25-35) Mean Corpuscular Hemoglobin Concent 32 g/dL (31-37) Red Cell Distribution Width 18.7 % (11.5-14.5) Platelet Count 364 x10^3/uL (140-400) Neutrophils (%) (Auto) 64 % (31-73) Lymphocytes (%) (Auto) 29 % (24-48) Monocytes (%) (Auto) 5 % (0-9) Eosinophils (%) (Auto) 1 % (0-3) Basophils (%) (Auto) 1 % (0-3) Neutrophils # (Auto) 5.9 x10^3uL (1.8-7.7) Lymphocytes # (Auto) 2.7 x10^3/uL (1.0-4.8) Monocytes # (Auto) 0.5 x10^3/uL (0.0-1.1) Eosinophils # (Auto) 0.1 x10^3/uL (0.0-0.7) Basophils # (Auto) 0.0 x10^3/uL (0.0-0.2) Prothrombin Time 13.9 SEC (11.7-14.0) Prothromb Time International Ratio 1.1 (0.8-1.1) Activated Partial Thromboplast Time 36 SEC (24-38) Sodium Level 141 mmol/L (136-145) Potassium Level 4.1 mmol/L (3.5-5.1) Chloride Level 103 mmol/L (98-107) Carbon Dioxide Level 25 mmol/L (21-32) Anion Gap 13 (6-14) Blood Urea Nitrogen 11 mg/dL (7-20) Creatinine 0.9 mg/dL (0.6-1.0) Estimated GFR (Cockcroft-Gault) 66.8 BUN/Creatinine Ratio 12 (6-20) Glucose Level 112 mg/dL (70-99) Calcium Level 9.4 mg/dL (8.5-10.1) Magnesium Level 2.3 mg/dL (1.8-2.4) Total Bilirubin 0.5 mg/dL (0.2-1.0) Aspartate Amino Transf (AST/SGOT) 21 U/L (15-37) Alanine Aminotransferase (ALT/SGPT) 15 U/L (14-59) Alkaline Phosphatase 119 U/L (46-116) Creatine Kinase 112 U/L (26-192) Creatine Kinase MB (Mass) 0.8 ng/mL (0.0-3.6) Creatine Kinase MB Relative Index 0.7 % (0-4) Troponin I Quantitative < 0.017 ng/mL (0.000-0.055) < 0.017 ng/mL (0.000-0.055) < 0.017 ng/mL (0.000-0.055) RV-Ygy-A-Type Natriuretic Peptide 1518 pg/mL (0-124) Total Protein 8.5 g/dL (6.4-8.2) Albumin 4.0 g/dL (3.4-5.0) Albumin/Globulin Ratio 0.9 (1.0-1.7) Lipase 124 U/L (73-393) Thyroid Stimulating Hormone (TSH) 2.185 uIU/mL (0.358-3.74) Ethyl Alcohol Level < 10 mg/dL (0-10) Urine Collection Type Unknown Urine Color Yellow Urine Clarity Clear Urine pH 5.5 Urine Specific [place] 1.010 Urine Protein Negative mg/dL (NEG-TRACE) Urine Glucose (UA) Negative mg/dL (NEG) Urine Ketones (Stick) Negative mg/dL (NEG) Urine Blood Trace (NEG) Urine Nitrite Negative (NEG) Urine Bilirubin Negative (NEG) Urine Urobilinogen Dipstick 0.2 mg/dL (0.2 mg/dL) Urine Leukocyte Esterase Small (NEG) Urine RBC 1-2 /HPF (0-2) Urine WBC 1-4 /HPF (0-4) Urine Squamous Epithelial Cells Mod /LPF Urine Bacteria 0 /HPF (0-FEW) Urine Mucus Mod /LPF Stool Occult Blood Negative (NEG) Urine Opiates Screen Neg (NEG) Urine Methadone Screen Neg (NEG) Urine Barbiturates Neg (NEG) Urine Phencyclidine Screen Neg (NEG) Urine Amphetamine/Methamphetamine Neg (NEG) Urine Benzodiazepines Screen Neg (NEG) Urine Cocaine Screen Neg (NEG) Urine Cannabinoids Screen Neg (NEG) Urine Ethyl Alcohol Neg (NEG) Microbiology 10/24/18 Fecal Leukocyte Stain - Final, Complete Medications Current Medications Sodium Chloride 1,000 ml @ 1,000 mls/hr 1X ONCE IV Last administered on 14:26; Start 10/24/18 at 13:45; Stop 10/24/18 at 14:44; Status DC Ondansetron HCl (Zofran) 4 mg 1X ONCE IV Last administered on 10/24/18at 14:28 ; Start 10/24/18 at 13:45; Stop 10/24/18 at 14:06; Status DC Famotidine (Pepcid Vial) 20 mg 1X ONCE IVP Last administered on 10/24/18at 14: 29; Start 10/24/18 at 13:45; Stop 10/24/18 at 14:06; Status DC Sodium Chloride 1,000 ml @ 1,000 mls/hr 1X ONCE IV Last administered on at 14:33; Start 10/24/18 at 14:30; Stop 10/24/18 at 15:29; Status DC Ondansetron HCl (Zofran) 4 mg PRN Q8HRS PRN IV NAUSEA/VOMITING Last administered on 10/25/18at 09:06; Start 10/24/18 at 14:30; Stop 10/25/18 at 14:29 Amlodipine Besylate (Norvasc) 10 mg DAILY PO Last administered on 10/25/18at 09: 04; Start 10/24/18 at 16:30 Hydralazine HCl (Apresoline Inj) 10 mg PRN Q4HRS PRN IVP ELEVATED BP, SEE COMMENTS Last administered on 10/24/18at 16:42; Start 10/24/18 at 16:30 Lisinopril (Prinivil) 20 mg DAILY PO Last administered on 10/25/18at 09:07; Start 10/25/18 at 09:00 Sodium Chloride 1,000 ml @ 100 mls/hr Q10H IV Last administered on 10/25/18 05:46; Start 10/24/18 at 18:30 Heparin Sodium (Porcine) (Heparin Sodium) 5,000 unit Q8HRS SQ Last administered on 10/24/18 20:54; Start 10/24/18 at 22:00 Baclofen (Lioresal) 10 mg PRN Q6HRS PRN PO MUSCLE PAIN Last administered on 20:24; Start 10/24/18 at 20:15 Buspirone HCl (Buspar) 10 mg TID PO Last administered on 10/25/18 07:35; Start 10/24/18 at 21:00 Cetirizine HCl (ZyrTEC) 10 mg HS PO Last administered on 10/24/18 20:26; Start 10/24/18 at 21:00 Doxepin HCl (SINequan) 6 mg HS PO ; Start 10/24/18 at 21:00; Status UNV Fentanyl (Duragesic 12mcg/ Hr Patch) 1 patch Q3DAYS TD ; Start 10/27/18 at 09:00 Nystatin (Nystop) 1 nathan BID TP Last administered on 10/24/18at 20:53; Start at 21:00 Citalopram Hydrobromide (CeleXA) 40 mg QHS PO Last administered on 10/24/18 20 :27; Start 10/24/18 at 21:00 Gabapentin (Neurontin) 1,200 mg PRN QHS PRN PO NERVE PAIN Last administered on 10/24/18 20:25; Start 10/24/18 at 21:00 Gabapentin (Neurontin) 600 mg TID PO Last administered on 10/25/18 07:36; Start 10/24/18 at 21:00 Hydromorphone HCl (Dilaudid) 8 mg PRN Q12HRS PRN PO PAIN Last administered on 07:38; Start 10/24/18 at 20:15; Stop 10/25/18 at 12:02; Status DC Pantoprazole Sodium (Protonix) 40 mg DAILYAC PO Last administered on 10/25/18at 07:35; Start 10/25/18 at 07:30 Pregabalin (Lyrica) 150 mg TID PO Last administered on 10/25/18at 07:36; Start 10/24/18 at 21:00 Tizanidine HCl (Zanaflex) 6 mg PRN Q8HRS PRN PO MUSCLE SPASMS; Start 10/24/18 at 20:15 Tizanidine HCl (Zanaflex) 12 mg PRN QHS PRN PO MUSCLE SPASMS Last administered on 10/24/18at 20:25; Start 10/24/18 at 20:15 Zolpidem Tartrate (Ambien) 5 mg PRN QHS PRN PO INSOMNIA MR X1 Last administered on 10/24/18at 20:24; Start 10/24/18 at 20:15 Acetaminophen (Tylenol) 650 mg PRN Q6HRS PRN PO PAIN Last administered on at 04:14; Start 10/25/18 at 04:00 Hydromorphone HCl (Dilaudid) 4 mg PRN Q6HRS PRN PO PAIN; Start 10/25/18 at 12: 15 Prochlorperazine Edisylate (Compazine) 10 mg 1X ONCE IV ; Start 10/25/18 at 12: 15; Stop 10/25/18 at 12:16; Status DC Sodium Chloride (Saline Mist Nasal) 1 nathan PRN Q1HR PRN NS NASAL CONGESTION; Start 10/25/18 at 12:30; Status UNV Active Scripts Active Reported Lyrica (Pregabalin) 150 Mg Capsule 150 Mg PO TID 30 Days Doxepin Hcl 10 Mg Capsule 6 Mg PO HS Escitalopram Oxalate 20 Mg Tablet 20 Mg PO DAILYHS Protonix (Pantoprazole Sodium) 20 Mg Tablet.dr 40 Mg PO DAILY Tizanidine Hcl 6 Mg Capsule 12 Mg PO HS PRN Tizanidine Hcl 4 Mg Tablet 6 Mg PO TID PRN Cetirizine Hcl 10 Mg Tablet 10 Mg PO HS Nystatin 15 Gm Powder 1 Nathan TP BID Cyanocobalamin Injection (Cyanocobalamin (Vitamin B-12)) 1,000 Mcg/1 Ml Vial 1, 000 Mcg IJ QMONTH FENTANYL 12mcg/hr (Fentanyl) 1 Each Patch.td72 1 Patch TP Q3DAYS Zolpidem Tartrate Er (Zolpidem Tartrate) 12.5 Mg Tab.mphase 12.5 Mg PO PRN QHS PRN Hydromorphone Hcl 8 Mg Tablet 8 Mg PO PRN Q12HRS PRN Gabapentin 600 Mg Tablet 1,200 Mg PO HS PRN Gabapentin 600 Mg Tablet 600 Mg PO TID Baclofen 10 Mg Tablet 10 Mg PO PRN Q6HRS PRN Buspirone Hcl 10 Mg Tablet 10 Mg PO TID Vitals/I & O Vital Sign - Last 24 Hours 10/24/18 10/24/18 10/24/18 10/24/18 13:30 13:56 14:09 14:24 Temp 98.4 98.4 Pulse 38 38 34 36 Resp 18 22 20 20 B/P (MAP) 193/92 (125) 133/91 (105) 193/99 (130) 181/85 (117) Pulse Ox 96 98 96 97 O2 Delivery Room Air Room Air 10/24/18 10/24/18 10/24/18 10/24/18 14:39 14:54 15:09 15:24 Pulse 36 40 44 48 Resp 20 20 18 20 B/P (MAP) 179/84 (115) 167/76 (106) 158/72 (100) 177/75 (109) Pulse Ox 99 95 96 96 O2 Delivery Room Air 10/24/18 10/24/18 10/24/18 10/24/18 15:53 16:15 16:30 16:42 Temp 98.0 98.0 Pulse 44 54 41 Resp 20 B/P (MAP) 188/83 (118) 205/84 (124) 205/84 Pulse Ox 98 99 O2 Delivery Room Air Room Air Room Air 10/24/18 10/24/18 10/24/18 10/24/18 17:47 19:00 19:50 23:38 Temp 98.8 98.0 98.8 98.0 Pulse 74 65 51 Resp 18 18 B/P (MAP) 142/64 159/77 (104) 145/71 (95) Pulse Ox 96 96 O2 Delivery Room Air Room Air Room Air 10/25/18 10/25/18 10/25/18 10/25/18 03:39 07:00 08:00 09:04 Temp 98.4 98.6 98.4 98.6 Pulse 58 72 72 Resp 16 18 B/P (MAP) 149/74 (99) 167/77 (107) 167/77 Pulse Ox 95 96 O2 Delivery Room Air Room Air Room Air 10/25/18 10/25/18 09:07 11:05 Temp 98.7 98.7 Pulse 72 72 Resp 18 B/P (MAP) 167/77 175/81 (112) Pulse Ox 96 O2 Delivery Room Air Intake and Output 10/24/18 10/24/18 10/25/18 15:00 23:00 07:00 Intake Total 1700 ml 780 ml Output Total 500 ml 1750 ml Balance 1200 ml -970 ml CARLEE HUTCHISON MD Oct 25, 2018 12:22
[2018-10-25] MEDS ORDERED: SODIUM CHLORIDE 0.65% NASAL SPRAY 45ML BOTTLE. NS PRN (12:30)
[2018-10-25] MEDS ORDERED: KETOROLAC 15 MG/ML VIAL. IV ONE (14:30)
[2018-10-25 15:06] VITALS: BP 180/85
[2018-10-25] MEDS: hydrALAZINE 20 MG/ML VIAL. IVP PRN (15:57)
--- NOTE | 2018-10-25 16:02 | CARD ---
MR#: [id number] Date of Study: 10/25/2018 Ordering Physician: EMILIE INTERIANO, Referring Physician: RADHAMES LESTER Tech: Teresa Glez APPROVED REPORT EXAM: Two-dimensional and M-mode echocardiogram with Doppler and color Doppler. Other Information Quality : AverageHR: 53bpm Technically limited study due to body habitus INDICATION Arrhythmia Bradycardia RISK FACTORS Hypertension 2D DIMENSIONS RVDd3.6 (2.9-3.5cm)Left Atrium(2D)4.0 (1.6-4.0cm) IVSd1.1 (0.7-1.1cm)Aortic Root(2D)3.2 (2.0-3.7cm) LVDd4.9 (3.9-5.9cm)LVOT Diameter2.0 (1.8-2.4cm) PWd1.1 (0.7-1.1cm)LVDs3.4 (2.5-4.0cm) FS (%) 31.3 %SV67.8 ml LVEF(%)58.9 (>50%) Aortic Valve AoV Peak Demarcus.145.9cm/sAoV VTI30.1cm AO Peak GR.8.5mmHgLVOT VTI 22.42cm AO Mean GR.5mmHg Mitral Valve MV E Qqfyvolb66.0cm/sMV DECEL [id number] MV A Giaxoxks78.6cm/sE/A Ratio1.1 TDI Lateral E' P. V10.68cm/sMedial E' P. V6.56cm/s E/Lateral E'8.5E/Medial E'13.9 Tricuspid Valve TR P. Kttkbvbg677cg/sRAP [id number] TR Peak Gr.[id number] Pulmonary Vein S1 Cyafjlwr06.5cm/sS2 Rhhtgtmm73.85cm/s D2 Saxcccat77.9cm/sPVa [id number] LEFT VENTRICLE The left ventricle is normal size. There is borderline concentric left ventricular hypertrophy. The l eft ventricular systolic function is normal and the ejection fraction is within normal range. The Eje ction Fraction is >55%. There is normal LV segmental wall motion. The left ventricular diastolic func tion and filling is normal for age. RIGHT VENTRICLE The right ventricle is borderline dilated. There is normal right ventricular wall thickness. The righ t ventricular systolic function is normal. ATRIA The left atrium size is normal. The right atrium size is normal. The interatrial septum is intact wit h no evidence for an atrial septal defect or patent foramen ovale as noted on 2-D or Doppler imaging. AORTIC VALVE The aortic valve is normal in structure and function. Doppler and Color Flow revealed no significant aortic regurgitation. There is no significant aortic valvular stenosis. MITRAL VALVE The mitral valve is normal in structure and function. There is no evidence of mitral valve prolapse. There is no mitral valve stenosis. Doppler and Color-flow revealed trace mitral regurgitation. TRICUSPID VALVE The tricuspid valve is normal in structure and function. Doppler and Color Flow revealed trace tricus pid regurgitation with an estimated PAP of 32 mmHg. There is no tricuspid valve stenosis. PULMONIC VALVE Doppler and Color Flow revealed no pulmonic valvular regurgitation. There is no pulmonic valvular robbi nosis. GREAT VESSELS The aortic root is normal in size. The IVC is normal in size and collapses >50% with inspiration. PERICARDIAL EFFUSION There is no evidence of significant pericardial effusion. Critical Notification Critical Value: No <Conclusion> The left ventricular systolic function is normal and the ejection fraction is within normal range. Th e Ejection Fraction is >55%. There is normal LV segmental wall motion. Technically difficult study, within these limitations, no significant valvular disease or wall motion abnormalities. Signed by : Jairo Velazquez, Electronically Approved : 10/25/2018 16:02:00
[2018-10-25] MEDS: BACLOFEN 10 MG TABLET. PO PRN (17:07)
[2018-10-25 19:46] VITALS: BP 145/74
[2018-10-25] MEDS ORDERED: KETOROLAC 30 MG/ML VIAL. IV ONE (20:30)
[2018-10-25] MEDS ORDERED: SUMAtriptan SUCCINATE 100 MG TABLET PO ONE (20:30)
[2018-10-25] MEDS: DOXEPIN HCL 10 MG CAPSULE. PO SCH (21:00)
[2018-10-25] MEDS: CETIRIZINE HCL 10 MG TABLET. PO SCH (21:10)
[2018-10-25] MEDS: CITALOPRAM 20 MG TABLET. PO SCH (21:10)
[2018-10-25] MEDS: tiZANidine 4 MG TABLET. PO PRN (21:11)
[2018-10-25] MEDS: GABAPENTIN 400 MG CAPSULE. PO PRN (21:11)
[2018-10-25] MEDS: ZOLPIDEM 5 MG TABLET. PO PRN (21:11)
[2018-10-25 22:39] VITALS: BP 112/57
[2018-10-26] MEDS: BACLOFEN 10 MG TABLET. PO PRN ×3 (02:20→20:58)
[2018-10-26] MEDS: IV 1/2 NORMAL SALINE 1,000 ML IV SCH ×3 (02:21→20:30)
[2018-10-26 02:24] VITALS: BP 105/55
[2018-10-26] MEDS: HEPARIN for SUB-Q USE 5,000 UNIT/ML VIAL. SQ SCH ×3 (06:00→21:37)
[2018-10-26 07:00] VITALS: BP 103/58
[2018-10-26] MEDS: PANTOPRAZOLE 40 MG TABLET.DR. PO SCH (07:55)
--- NOTE | 2018-10-26 08:19 | PDOC ---
PROGRESS NOTES Chief Complaint Chief Complaint Diarrhea Asymptomatic Bradycardia UC HTN Obesity, s/p gastric bypass sx Multple home meds History of Present Illness History of Present Illness 48 yo F admitted for complains of fatigue and watery diarrhea for 4 days, greenish-yellowish, no blood. approximately 8-10 episodes yesterday. patient s/ p gastric bypass in 2007. patient with poor PO intake and with headache. no recent abx use or travel. patient does take multiple meds 15-20 she says. patient found to be bradycardic in ED. patient had LHC 8 years ago due to + stress test but LHC negative. denies hx of arrhythmias, no fevers chilles. no vomiting but + nausea. no hx of colo. in ED HR 30s. patient started on fluids. BNP >1500. BP up today and tachycardic, quite a change. Less stools today, had a headache. CT shows sinus congestion, otherwise WNL. Sinus rinse and imitrex, compazine, toradol helping. She does not feel comfortable leaving. Advised we cannot prescribe any of her lyrica, ambien, or pain medications on discharge as she is in a pain contract. Plan: IV compazine for BENDER, imitrex prn, f/u GI recs, cardiology recs Vitals Vitals Vital Signs Date Time Temp Pulse Resp B/P (MAP) Pulse Ox O2 Delivery O2 Flow Rate FiO2 10/26/18 07:00 97.9 62 18 103/58 (73) 96 Room Air 97.9 Physical Exam General: Alert, Oriented X3, Cooperative, No acute distress Heart: Regular rate (SR/SB), Normal S1, Normal S2, No murmurs Abdomen: Soft, No tenderness Extremities: No cyanosis, No edema Skin: No breakdown, No significant lesion Assessment and Plan Assessmemt and Plan Problems Medical Problems: (1) Bradycardia Status: Acute (2) Dehydration Status: Acute (3) Nausea vomiting and diarrhea Status: Acute Comment Review of Relevant I have reviewed the following items yari (where applicable) has been applied. Labs Laboratory Tests Test 10/24/18 13:50 10/24/18 15:42 10/24/18 17:40 10/24/18 21:00 White Blood Count 9.1 x10^3/uL (4.0-11.0) Red Blood Count 4.59 x10^6/uL (3.50-5.40) Hemoglobin 12.4 g/dL (12.0-15.5) Hematocrit 38.4 % (36.0-47.0) Mean Corpuscular Volume 84 fL (79-100) Mean Corpuscular Hemoglobin 27 pg (25-35) Mean Corpuscular Hemoglobin Concent 32 g/dL (31-37) Red Cell Distribution Width 18.7 % (11.5-14.5) Platelet Count 364 x10^3/uL (140-400) Neutrophils (%) (Auto) 64 % (31-73) Lymphocytes (%) (Auto) 29 % (24-48) Monocytes (%) (Auto) 5 % (0-9) Eosinophils (%) (Auto) 1 % (0-3) Basophils (%) (Auto) 1 % (0-3) Neutrophils # (Auto) 5.9 x10^3uL (1.8-7.7) Lymphocytes # (Auto) 2.7 x10^3/uL (1.0-4.8) Monocytes # (Auto) 0.5 x10^3/uL (0.0-1.1) Eosinophils # (Auto) 0.1 x10^3/uL (0.0-0.7) Basophils # (Auto) 0.0 x10^3/uL (0.0-0.2) Prothrombin Time 13.9 SEC (11.7-14.0) Prothromb Time International Ratio 1.1 (0.8-1.1) Activated Partial Thromboplast Time 36 SEC (24-38) Sodium Level 141 mmol/L (136-145) Potassium Level 4.1 mmol/L (3.5-5.1) Chloride Level 103 mmol/L (98-107) Carbon Dioxide Level 25 mmol/L (21-32) Anion Gap 13 (6-14) Blood Urea Nitrogen 11 mg/dL (7-20) Creatinine 0.9 mg/dL (0.6-1.0) Estimated GFR (Cockcroft-Gault) 66.8 BUN/Creatinine Ratio 12 (6-20) Glucose Level 112 mg/dL (70-99) Calcium Level 9.4 mg/dL (8.5-10.1) Magnesium Level 2.3 mg/dL (1.8-2.4) Total Bilirubin 0.5 mg/dL (0.2-1.0) Aspartate Amino Transf (AST/SGOT) 21 U/L (15-37) Alanine Aminotransferase (ALT/SGPT) 15 U/L (14-59) Alkaline Phosphatase 119 U/L (46-116) Creatine Kinase 112 U/L (26-192) Creatine Kinase MB (Mass) 0.8 ng/mL (0.0-3.6) Creatine Kinase MB Relative Index 0.7 % (0-4) Troponin I Quantitative < 0.017 ng/mL (0.000-0.055) < 0.017 ng/mL (0.000-0.055) < 0.017 ng/mL (0.000-0.055) TD-Jau-P-Type Natriuretic Peptide 1518 pg/mL (0-124) Total Protein 8.5 g/dL (6.4-8.2) Albumin 4.0 g/dL (3.4-5.0) Albumin/Globulin Ratio 0.9 (1.0-1.7) Lipase 124 U/L (73-393) Thyroid Stimulating Hormone (TSH) 2.185 uIU/mL (0.358-3.74) Ethyl Alcohol Level < 10 mg/dL (0-10) Urine Collection Type Unknown Urine Color Yellow Urine Clarity Clear Urine pH 5.5 Urine Specific [place] 1.010 Urine Protein Negative mg/dL (NEG-TRACE) Urine Glucose (UA) Negative mg/dL (NEG) Urine Ketones (Stick) Negative mg/dL (NEG) Urine Blood Trace (NEG) Urine Nitrite Negative (NEG) Urine Bilirubin Negative (NEG) Urine Urobilinogen Dipstick 0.2 mg/dL (0.2 mg/dL) Urine Leukocyte Esterase Small (NEG) Urine RBC 1-2 /HPF (0-2) Urine WBC 1-4 /HPF (0-4) Urine Squamous Epithelial Cells Mod /LPF Urine Bacteria 0 /HPF (0-FEW) Urine Mucus Mod /LPF Stool Occult Blood Negative (NEG) Urine Opiates Screen Neg (NEG) Urine Methadone Screen Neg (NEG) Urine Barbiturates Neg (NEG) Urine Phencyclidine Screen Neg (NEG) Urine Amphetamine/Methamphetamine Neg (NEG) Urine Benzodiazepines Screen Neg (NEG) Urine Cocaine Screen Neg (NEG) Urine Cannabinoids Screen Neg (NEG) Urine Ethyl Alcohol Neg (NEG) Clostridium difficile Toxin B Gene Negative (Negative) Microbiology 10/24/18 Fecal Leukocyte Stain - Final, Complete Medications Current Medications Sodium Chloride 1,000 ml @ 1,000 mls/hr 1X ONCE IV Last administered on 14:26; Start 10/24/18 at 13:45; Stop 10/24/18 at 14:44; Status DC Ondansetron HCl (Zofran) 4 mg 1X ONCE IV Last administered on 10/24/18at 14:28 ; Start 10/24/18 at 13:45; Stop 10/24/18 at 14:06; Status DC Famotidine (Pepcid Vial) 20 mg 1X ONCE IVP Last administered on 10/24/18 14: 29; Start 10/24/18 at 13:45; Stop 10/24/18 at 14:06; Status DC Sodium Chloride 1,000 ml @ 1,000 mls/hr 1X ONCE IV Last administered on at 14:33; Start 10/24/18 at 14:30; Stop 10/24/18 at 15:29; Status DC Ondansetron HCl (Zofran) 4 mg PRN Q8HRS PRN IV NAUSEA/VOMITING Last administered on 10/25/18 09:06; Start 10/24/18 at 14:30; Stop 10/25/18 at 14:29 ; Status DC Amlodipine Besylate (Norvasc) 10 mg DAILY PO Last administered on 10/25/18 09: 04; Start 10/24/18 at 16:30 Hydralazine HCl (Apresoline Inj) 10 mg PRN Q4HRS PRN IVP ELEVATED BP, SEE COMMENTS Last administered on 10/25/18at 15:57; Start 10/24/18 at 16:30 Lisinopril (Prinivil) 20 mg DAILY PO Last administered on 10/25/18 09:07; Start 10/25/18 at 09:00 Sodium Chloride 1,000 ml @ 100 mls/hr Q10H IV Last administered on 10/26/18 02:21; Start 10/24/18 at 18:30 Heparin Sodium (Porcine) (Heparin Sodium) 5,000 unit Q8HRS SQ Last administered on 10/24/18at 20:54; Start 10/24/18 at 22:00 Baclofen (Lioresal) 10 mg PRN Q6HRS PRN PO MUSCLE PAIN Last administered on 02:20; Start 10/24/18 at 20:15 Buspirone HCl (Buspar) 10 mg TID PO Last administered on 10/25/18 21:10; Start 10/24/18 at 21:00 Cetirizine HCl (ZyrTEC) 10 mg HS PO Last administered on 10/25/18 21:10; Start 10/24/18 at 21:00 Doxepin HCl (SINequan) 6 mg HS PO ; Start 10/24/18 at 21:00; Status UNV Fentanyl (Duragesic 12mcg/ Hr Patch) 1 patch Q3DAYS TD ; Start 10/27/18 at 09:00 Nystatin (Nystop) 1 nathan BID TP Last administered on 10/25/18at 21:00; Start at 21:00 Citalopram Hydrobromide (CeleXA) 40 mg QHS PO Last administered on 10/25/18 21 :10; Start 10/24/18 at 21:00 Gabapentin (Neurontin) 1,200 mg PRN QHS PRN PO NERVE PAIN Last administered on 10/25/18 21:11; Start 10/24/18 at 21:00 Gabapentin (Neurontin) 600 mg TID PO Last administered on 10/25/18 12:31; Start 10/24/18 at 21:00 Hydromorphone HCl (Dilaudid) 8 mg PRN Q12HRS PRN PO PAIN Last administered on 07:38; Start 10/24/18 at 20:15; Stop 10/25/18 at 12:02; Status DC Pantoprazole Sodium (Protonix) 40 mg DAILYAC PO Last administered on 10/26/18 07:55; Start 10/25/18 at 07:30 Pregabalin (Lyrica) 150 mg TID PO Last administered on 10/25/18 21:11; Start 10/24/18 at 21:00 Tizanidine HCl (Zanaflex) 6 mg PRN Q8HRS PRN PO MUSCLE SPASMS; Start 10/24/18 at 20:15 Tizanidine HCl (Zanaflex) 12 mg PRN QHS PRN PO MUSCLE SPASMS Last administered on 10/25/18 21:11; Start 10/24/18 at 20:15 Zolpidem Tartrate (Ambien) 5 mg PRN QHS PRN PO INSOMNIA MR X1 Last administered on 10/25/18 21:11; Start 10/24/18 at 20:15 Acetaminophen (Tylenol) 650 mg PRN Q6HRS PRN PO PAIN Last administered on at 04:14; Start 10/25/18 at 04:00 Hydromorphone HCl (Dilaudid) 4 mg PRN Q6HRS PRN PO PAIN Last administered on 21:11; Start 10/25/18 at 12:15 Prochlorperazine Edisylate (Compazine) 10 mg 1X ONCE IV Last administered on 12:31; Start 10/25/18 at 12:15; Stop 10/25/18 at 12:16; Status DC Sodium Chloride (Saline Mist Nasal) 1 nathan PRN Q1HR PRN NS NASAL CONGESTION Last administered on 10/25/18at 13:59; Start 10/25/18 at 12:30 Ketorolac Tromethamine (Toradol 15mg Vial) 15 mg 1X ONCE IV Last administered on 10/25/18at 15:05; Start 10/25/18 at 14:30; Stop 10/25/18 at 14:37; Status DC Ketorolac Tromethamine (Toradol 30mg Vial) 30 mg 1X ONCE IV ; Start 10/25/18 at 20:30; Stop 10/25/18 at 20:31; Status DC Sumatriptan Succinate (Imitrex) 100 mg 1X ONCE PO Last administered on at 20:37; Start 10/25/18 at 20:30; Stop 10/25/18 at 20:31; Status DC Active Scripts Active Reported Lyrica (Pregabalin) 150 Mg Capsule 150 Mg PO TID 30 Days Doxepin Hcl 10 Mg Capsule 6 Mg PO HS Escitalopram Oxalate 20 Mg Tablet 20 Mg PO DAILYHS Protonix (Pantoprazole Sodium) 20 Mg Tablet.dr 40 Mg PO DAILY Tizanidine Hcl 6 Mg Capsule 12 Mg PO HS PRN Tizanidine Hcl 4 Mg Tablet 6 Mg PO TID PRN Cetirizine Hcl 10 Mg Tablet 10 Mg PO HS Nystatin 15 Gm Powder 1 Nathan TP BID Cyanocobalamin Injection (Cyanocobalamin (Vitamin B-12)) 1,000 Mcg/1 Ml Vial 1, 000 Mcg IJ QMONTH FENTANYL 12mcg/hr (Fentanyl) 1 Each Patch.td72 1 Patch TP Q3DAYS Zolpidem Tartrate Er (Zolpidem Tartrate) 12.5 Mg Tab.mphase 12.5 Mg PO PRN QHS PRN Hydromorphone Hcl 8 Mg Tablet 8 Mg PO PRN Q12HRS PRN Gabapentin 600 Mg Tablet 1,200 Mg PO HS PRN Gabapentin 600 Mg Tablet 600 Mg PO TID Baclofen 10 Mg Tablet 10 Mg PO PRN Q6HRS PRN Buspirone Hcl 10 Mg Tablet 10 Mg PO TID Vitals/I & O Vital Sign - Last 24 Hours 10/25/18 10/25/18 10/25/18 10/25/18 09:04 09:07 11:05 15:06 Temp 98.7 98.4 98.7 98.4 Pulse 72 72 72 93 Resp 18 18 B/P (MAP) 167/77 167/77 175/81 (112) 180/85 (116) Pulse Ox 96 97 O2 Delivery Room Air Room Air 10/25/18 10/25/18 10/25/18 10/25/18 15:57 19:46 20:00 22:39 Temp 98.6 99.1 98.6 99.1 Pulse 69 110 59 Resp 20 18 B/P (MAP) 164/79 145/74 (97) 112/57 (75) Pulse Ox 98 96 O2 Delivery Room Air Room Air Room Air 10/26/18 10/26/18 02:24 07:00 Temp 98.0 97.9 98.0 97.9 Pulse 52 62 Resp 20 18 B/P (MAP) 105/55 (72) 103/58 (73) Pulse Ox 97 96 O2 Delivery Room Air Room Air Intake and Output 10/25/18 10/25/18 10/26/18 15:00 23:00 07:00 Intake Total 460 ml 120 ml 3017 ml Output Total 900 ml 700 ml 1500 ml Balance -440 ml -580 ml 1517 ml CARLEE HUTCHISON MD Oct 26, 2018 08:19
[2018-10-26] MEDS: busPIRone 10 MG TABLET. PO SCH ×3 (08:28→20:44)
[2018-10-26] MEDS: GABAPENTIN 300 MG CAPSULE. PO SCH ×3 (08:28→20:44)
[2018-10-26] MEDS: PREGABALIN 75 MG CAPSULE PO SCH ×3 (08:29→20:44)
[2018-10-26] MEDS: NYSTATIN TOPICAL POWDER 15GM BOTTLE. TP SCH ×2 (08:30→20:59)
[2018-10-26] MEDS: HYDROmorphone 4 MG TABLET PO PRN ×2 (08:35→20:58)
[2018-10-26] MEDS: ACETAMINOPHEN 325 MG TABLET. PO PRN ×2 (08:35→14:20)
--- NOTE | 2018-10-26 10:26 | PDOC ---
Subjective: Subjective: Ate some toast this morning - doesn't like coffee, juice usually doesn't settle well, and potatoes had peppers which "are a no-no." Diarrhea better - no stools since yesterday. Headache went away during the night - now back, but better overall. Now tells me this is the third flare of symptoms (diarrhea) she's had in 3 weeks. Also wonders about having a colonoscopy - says her daughter had genetic testing (because she has breast cancer at age 26) and was told she might be at risk for colon cancer. Objective: Vital Signs: Vital Signs Date Time Temp Pulse Resp B/P (MAP) Pulse Ox O2 Delivery O2 Flow Rate FiO2 10/26/18 07:00 97.9 62 18 103/58 (73) 96 Room Air 97.9 Imaging: Head CT Impression: 1.No evidence of acute intracranial abnormality 2. Areas of mucosal thickening within the maxillary sinuses and ethmoid air cells with bubbly secretions in the right sphenoid sinus. Acute sinusitis not excluded. PE: GEN: NAD LUNGS: CTAB HEART: RRR ABD: quiet BS, non-tender NEURO/PSYCH: A & O 3 A/P: Bradycardia, HTN - better N/v, diarrhea, abd pain - better Headache - better, sinusitis on CT S/p Roger-en-Y FH cancer - breast, uterine -- Apparently diarrhea is a recurring issue. Discussed possibility of outpt colonoscopy when acute issues have improved - would need to be able to tolerate prep. TR SANTIAGO Oct 26, 2018 10:26
[2018-10-26 10:40] VITALS: BP 152/71
[2018-10-26] MEDS: LISINOPRIL 20 MG TABLET PO SCH (11:18)
[2018-10-26] MEDS: amLODIPine BESYLATE 10 MG TABLET PO SCH (11:19)
[2018-10-26] MEDS ORDERED: SUMAtriptan SUCCINATE 100 MG TABLET PO PRN (13:15)
[2018-10-26] MEDS: tiZANidine 4 MG TABLET. PO PRN ×2 (14:20→20:57)
[2018-10-26 15:12] VITALS: BP 138/69
[2018-10-26 19:40] VITALS: BP 100/57
[2018-10-26] MEDS: CETIRIZINE HCL 10 MG TABLET. PO SCH (20:44)
[2018-10-26] MEDS: ZOLPIDEM 5 MG TABLET. PO PRN (20:58)
[2018-10-26] MEDS: CITALOPRAM 20 MG TABLET. PO SCH (20:58)
[2018-10-26 23:41] VITALS: BP 110/62
[2018-10-27] MEDS: HEPARIN for SUB-Q USE 5,000 UNIT/ML VIAL. SQ SCH ×3 (06:00→20:48)
[2018-10-27] MEDS: IV 1/2 NORMAL SALINE 1,000 ML IV SCH ×2 (06:30→15:58)
[2018-10-27 07:43] VITALS: BP 137/73
[2018-10-27] MEDS: amLODIPine BESYLATE 10 MG TABLET PO SCH (08:38)
[2018-10-27] MEDS: LISINOPRIL 20 MG TABLET PO SCH (08:38)
[2018-10-27] MEDS: PREGABALIN 75 MG CAPSULE PO SCH ×3 (08:39→20:40)
[2018-10-27] MEDS: PANTOPRAZOLE 40 MG TABLET.DR. PO SCH (08:39)
[2018-10-27] MEDS: GABAPENTIN 300 MG CAPSULE. PO SCH ×3 (08:39→20:40)
[2018-10-27] MEDS: ACETAMINOPHEN 325 MG TABLET. PO PRN ×2 (08:39→17:41)
[2018-10-27] MEDS: busPIRone 10 MG TABLET. PO SCH ×3 (08:39→20:39)
[2018-10-27] MEDS: HYDROmorphone 4 MG TABLET PO PRN ×3 (08:39→20:39)
[2018-10-27] MEDS: tiZANidine 4 MG TABLET. PO PRN ×2 (08:39→20:39)
[2018-10-27] MEDS: NYSTATIN TOPICAL POWDER 15GM BOTTLE. TP SCH ×2 (08:49→20:49)
[2018-10-27] MEDS ORDERED: fentaNYL 12MCG/HR PATCH 1 PATCH PATCH.TD72 TD SCH (09:00)
[2018-10-27 11:24] VITALS: BP 98/50
--- NOTE | 2018-10-27 12:25 | PDOC ---
PROGRESS NOTES Chief Complaint Chief Complaint CC: Diarrhea & Fatigue for 4 days [employer] History of Present Illness History of Present Illness Pt seen and examined this morning, resting comfortably in bed Complains of a head ache this morning Tolerating soft diet, denies N/V States she had a few episodes of diarrhea yesterday Vitals Vitals Vital Signs Date Time Temp Pulse Resp B/P (MAP) Pulse Ox O2 Delivery O2 Flow Rate FiO2 10/27/18 11:24 97.7 59 16 98/50 (66) 99 Room Air 97.7 Physical Exam General: Alert, Oriented X3, Cooperative, No acute distress Heart: Regular rate (SR/SB), Normal S1, Normal S2, No murmurs Lungs: Clear, Other (No crackles or wheezing) Abdomen: Normal bowel sounds, Soft, No tenderness Extremities: No clubbing, No cyanosis, No edema Skin: No rashes, No breakdown, No significant lesion Review of Systems Review of Systems Denies N/V Denies CP/SOA Admits diarrhea episodes Admits generalized fatigue Admits high levels of stress at home Assessment and Plan Assessmemt and Plan Assessment: Diarrhea Dehydration Obesity, s/p gastric bypass sx Asymptomatic Bradycardia; Echo with EF>55%, EKG sinus neftaly, Pro BNP 1518, TrI WNL, (?) Polypharmacy Head ache, CT showing sinus congestion HTN Plan: D/c pending GI recommendations and tolerating soft diet Out pt colonoscopy when acute issues have improved, appreciate GI recommendations Event monitor at d/c per Cardiology recommendation, Sinus rinse, imitrex, and compazine PT/OT orders Recheck labs in am Problems Medical Problems: (1) Bradycardia Status: Acute (2) Dehydration Status: Acute (3) Nausea vomiting and diarrhea Status: Acute Comment Review of Relevant I have reviewed the following items yari (where applicable) has been applied. Labs Microbiology 10/24/18 Fecal Leukocyte Stain - Final, Complete 10/24/18 Urine Culture - Final, Complete 10/24/18 Urine Culture Result 1 (JOANNE) - Final, Complete Medications Current Medications Sodium Chloride 1,000 ml @ 1,000 mls/hr 1X ONCE IV Last administered on at 14:26; Start 10/24/18 at 13:45; Stop 10/24/18 at 14:44; Status DC Ondansetron HCl (Zofran) 4 mg 1X ONCE IV Last administered on 10/24/18 14:28 ; Start 10/24/18 at 13:45; Stop 10/24/18 at 14:06; Status DC Famotidine (Pepcid Vial) 20 mg 1X ONCE IVP Last administered on 10/24/18 14: 29; Start 10/24/18 at 13:45; Stop 10/24/18 at 14:06; Status DC Sodium Chloride 1,000 ml @ 1,000 mls/hr 1X ONCE IV Last administered on 14:33; Start 10/24/18 at 14:30; Stop 10/24/18 at 15:29; Status DC Ondansetron HCl (Zofran) 4 mg PRN Q8HRS PRN IV NAUSEA/VOMITING Last administered on 10/25/18 09:06; Start 10/24/18 at 14:30; Stop 10/25/18 at 14:29 ; Status DC Amlodipine Besylate (Norvasc) 10 mg DAILY PO Last administered on 10/27/18 08: 38; Start 10/24/18 at 16:30 Hydralazine HCl (Apresoline Inj) 10 mg PRN Q4HRS PRN IVP ELEVATED BP, SEE COMMENTS Last administered on 10/25/18 15:57; Start 10/24/18 at 16:30 Lisinopril (Prinivil) 20 mg DAILY PO Last administered on 10/27/18 08:38; Start 10/25/18 at 09:00 Sodium Chloride 1,000 ml @ 100 mls/hr Q10H IV Last administered on 10/26/18 11:24; Start 10/24/18 at 18:30 Heparin Sodium (Porcine) (Heparin Sodium) 5,000 unit Q8HRS SQ Last administered on 10/27/18 06:00; Start 10/24/18 at 22:00 Baclofen (Lioresal) 10 mg PRN Q6HRS PRN PO MUSCLE PAIN Last administered on 20:58; Start 10/24/18 at 20:15 Buspirone HCl (Buspar) 10 mg TID PO Last administered on 10/27/18 08:39; Start 10/24/18 at 21:00 Cetirizine HCl (ZyrTEC) 10 mg HS PO Last administered on 10/26/18 20:44; Start 10/24/18 at 21:00 Doxepin HCl (SINequan) 6 mg HS PO ; Start 10/24/18 at 21:00; Stop 10/26/18 at 17 :31; Status DC Fentanyl (Duragesic 12mcg/ Hr Patch) 1 patch Q3DAYS TD Last administered on 08:40; Start 10/27/18 at 09:00 Nystatin (Nystop) 1 nathan BID TP Last administered on 10/26/18 20:59; Start at 21:00 Citalopram Hydrobromide (CeleXA) 40 mg QHS PO Last administered on 10/26/18 20 :58; Start 10/24/18 at 21:00 Gabapentin (Neurontin) 1,200 mg PRN QHS PRN PO NERVE PAIN Last administered on 10/25/18 21:11; Start 10/24/18 at 21:00 Gabapentin (Neurontin) 600 mg TID PO Last administered on 10/27/18 08:39; Start 10/24/18 at 21:00 Hydromorphone HCl (Dilaudid) 8 mg PRN Q12HRS PRN PO PAIN Last administered on 07:38; Start 10/24/18 at 20:15; Stop 10/25/18 at 12:02; Status DC Pantoprazole Sodium (Protonix) 40 mg DAILYAC PO Last administered on 10/27/18 08:39; Start 10/25/18 at 07:30 Pregabalin (Lyrica) 150 mg TID PO Last administered on 10/27/18 08:39; Start 10/24/18 at 21:00 Tizanidine HCl (Zanaflex) 6 mg PRN Q8HRS PRN PO MUSCLE SPASMS Last administered on 10/27/18 08:39; Start 10/24/18 at 20:15 Tizanidine HCl (Zanaflex) 12 mg PRN QHS PRN PO MUSCLE SPASMS Last administered on 10/26/18 20:57; Start 10/24/18 at 20:15 Zolpidem Tartrate (Ambien) 5 mg PRN QHS PRN PO INSOMNIA MR X1 Last administered on 10/26/18 20:58; Start 10/24/18 at 20:15 Acetaminophen (Tylenol) 650 mg PRN Q6HRS PRN PO MILD PAIN Last administered on 10/27/18 08:39; Start 10/25/18 at 04:00 Hydromorphone HCl (Dilaudid) 4 mg PRN Q6HRS PRN PO MODERATE - SEVERE PAIN Last administered on 10/27/18 08:39; Start 10/25/18 at 12:15 Prochlorperazine Edisylate (Compazine) 10 mg 1X ONCE IV Last administered on 12:31; Start 10/25/18 at 12:15; Stop 10/25/18 at 12:16; Status DC Sodium Chloride (Saline Mist Nasal) 1 nathan PRN Q1HR PRN NS NASAL CONGESTION Last administered on 10/25/18 13:59; Start 10/25/18 at 12:30 Ketorolac Tromethamine (Toradol 15mg Vial) 15 mg 1X ONCE IV Last administered on 10/25/18at 15:05; Start 10/25/18 at 14:30; Stop 10/25/18 at 14:37; Status DC Ketorolac Tromethamine (Toradol 30mg Vial) 30 mg 1X ONCE IV ; Start 10/25/18 at 20:30; Stop 10/25/18 at 20:31; Status DC Sumatriptan Succinate (Imitrex) 100 mg 1X ONCE PO Last administered on at 20:37; Start 10/25/18 at 20:30; Stop 10/25/18 at 20:31; Status DC Sumatriptan Succinate (Imitrex) 100 mg PRN Q2HR PRN PO MIGRAINE HEADACHE; Start 10/26/18 at 13:15 Active Scripts Active Reported Lyrica (Pregabalin) 150 Mg Capsule 150 Mg PO TID 30 Days Doxepin Hcl 10 Mg Capsule 6 Mg PO HS Escitalopram Oxalate 20 Mg Tablet 20 Mg PO DAILYHS Protonix (Pantoprazole Sodium) 20 Mg Tablet.dr 40 Mg PO DAILY Tizanidine Hcl 6 Mg Capsule 12 Mg PO HS PRN Tizanidine Hcl 4 Mg Tablet 6 Mg PO TID PRN Cetirizine Hcl 10 Mg Tablet 10 Mg PO HS Nystatin 15 Gm Powder 1 Nathan TP BID Cyanocobalamin Injection (Cyanocobalamin (Vitamin B-12)) 1,000 Mcg/1 Ml Vial 1, 000 Mcg IJ QMONTH FENTANYL 12mcg/hr (Fentanyl) 1 Each Patch.td72 1 Patch TP Q3DAYS Zolpidem Tartrate Er (Zolpidem Tartrate) 12.5 Mg Tab.mphase 12.5 Mg PO PRN QHS PRN Hydromorphone Hcl 8 Mg Tablet 8 Mg PO PRN Q12HRS PRN Gabapentin 600 Mg Tablet 1,200 Mg PO HS PRN Gabapentin 600 Mg Tablet 600 Mg PO TID Baclofen 10 Mg Tablet 10 Mg PO PRN Q6HRS PRN Buspirone Hcl 10 Mg Tablet 10 Mg PO TID Vitals/I & O Vital Sign - Last 24 Hours 10/26/18 10/26/18 10/26/18 10/26/18 15:12 19:24 19:40 23:41 Temp 98.4 98.0 97.7 98.4 98.0 97.7 Pulse 77 67 55 Resp 20 B/P (MAP) 138/69 (92) 100/57 (71) 110/62 (78) Pulse Ox 96 96 95 O2 Delivery Room Air Room Air Room Air Room Air 10/27/18 10/27/18 10/27/18 10/27/18 03:00 07:43 08:00 08:38 Temp 97.7 97.7 Pulse 45 60 60 Resp 16 B/P (MAP) 137/73 (94) 137/73 Pulse Ox 98 O2 Delivery Room Air Room Air Room Air 10/27/18 10/27/18 10/27/18 08:38 08:40 11:24 Temp 97.7 97.7 Pulse 60 59 Resp 18 16 B/P (MAP) 137/73 98/50 (66) Pulse Ox 98 99 O2 Delivery Room Air Room Air Intake and Output 10/26/18 10/26/18 10/27/18 14:59 22:59 06:59 Intake Total 360 ml 300 ml 730 ml Output Total 1200 ml Balance 360 ml 300 ml -470 ml TANI PETERSON III DO Oct 27, 2018 12:25
--- NOTE | 2018-10-27 12:30 | PDOC3 ---
Discharge Summary Visit Information Date of Admission: Oct 24, 2018 Date of Discharge: Oct 27, 2018 Admitting Diagnosis: Bradycardia, BENDER, Diarrhea Final Diagnosis Problems Medical Problems: (1) Bradycardia Status: Acute (2) Dehydration Status: Acute (3) Nausea vomiting and diarrhea Status: Acute Brief Hospital Course Allergies Allergies Coded Allergies Type Severity Reaction Last Updated Verified Penicillins Allergy Intermediate 10/24/18 Yes codeine Allergy Intermediate 10/24/18 Yes doxycycline Allergy Intermediate 10/24/18 Yes meperidine Allergy Intermediate 10/24/18 Yes Vital Signs Vital Signs Date Time Temp Pulse Resp B/P (MAP) Pulse Ox O2 Delivery O2 Flow Rate FiO2 10/27/18 11:24 97.7 59 16 98/50 (66) 99 Room Air 97.7 Brief Hospital Course Ms. Ortiz is a 48 old [female with multiple medical problems who presented with [diarrhea and weakness and was noted to be bradycardic She was admitted we consult cardiology and GI We did cardiac monitoring and serial enzymes Today when I saw the patient she was much better I discussed case with her nurse and explained if she is doing [place] afternoon we plan to discharge Romy cardiology is recommending a possible event monitor on discharge This morning her heart tones are normal her lungs are clear her abdomen was soft and obese extremities trace edema We plan to discharge Disposition home Activity as tolerated Diet regular Patient's please see below Total time 33 minutes ] Discharge Information Condition at Discharge: Improved Follow Up: Weeks Disposition/Orders: D/C to Home Scheduled Buspirone Hcl (Buspirone Hcl) 10 Mg Tablet, 10 MG PO TID for depression, ( Reported) Entered as Reported by: Melquiades Westfall on 10/24/181940 Last Taken: UNKNOWN on Unknown Date & Time Last Action: Continued on 10/24 by RADHAMES LESTER MD Cetirizine Hcl (Cetirizine Hcl) 10 Mg Tablet, 10 MG PO HS for allergies, ( Reported) Entered as Reported by: Melquiades Westfall on 10/24/181940 Last Taken: UNKNOWN on Unknown Date & Time Last Action: Continued on 10/24 by RADHAMES LESTER MD Cyanocobalamin (Vitamin B-12) (Cyanocobalamin Injection) 1,000 Mcg/1 Ml Vial, 1, 000 MCG IJ QMONTH for supplement, (Reported) Entered as Reported by: Melquiades Westfall on 10/24/181940 Last Taken: UNKNOWN on Unknown Date & Time Last Action: New Order on 10/24 by Melquiades Westfall Doxepin Hcl (Doxepin Hcl) 10 Mg Capsule, 6 MG PO HS for pain, (Reported) Entered as Reported by: Melquiades Westfall on 10/24/181940 Last Taken: UNKNOWN on Unknown Date & Time Last Action: Continued on 10/24 by RADHAMES LESTER MD Escitalopram Oxalate (Escitalopram Oxalate) 20 Mg Tablet, 20 MG PO DAILYhs for ANTI-DEPRESSANT, Ref 0 (Reported) Entered as Reported by: Melquiades Westfall on 10/24/181940 Last Taken: UNKNOWN on Unknown Date & Time Last Action: Converted on 10/24 by RADHAMES LESTER MD Fentanyl (FENTANYL 12mcg/hr) 1 Each Patch.td72, 1 PATCH TP Q3DAYS for pain, #10 (Reported) Entered as Reported by: Melquiades Westfall on 10/24/181940 Last Taken: UNKNOWN on Unknown Date & Time Last Action: Continued on 10/24 by RADHAMES LESTER MD Gabapentin (Gabapentin) 600 Mg Tablet, 600 MG PO TID for NEUROGENIC PAIN, ( Reported) Entered as Reported by: Melquiades Westfall on 10/24/181940 Last Taken: UNKNOWN on Unknown Date & Time Last Action: Converted on 10/24 by RADHAMES LESTER MD Nystatin (Nystatin) 15 Gm Powder, 1 ALIVIA TP BID for yeast, #1 (Reported) Entered as Reported by: Melquiades Westfall on 10/24/181940 Last Taken: UNKNOWN on Unknown Date & Time Last Action: Continued on 10/24 by RADHAMES LESTER MD Pantoprazole Sodium (Protonix) 20 Mg Tablet.dr, 40 MG PO DAILY for gi, (Reported ) Entered as Reported by: Melquiades Westfall on 10/24/181940 Last Taken: UNKNOWN on Unknown Date & Time Last Action: Converted on 10/24 by RADHAMES LESTER MD Pregabalin (Lyrica) 150 Mg Capsule, 150 MG PO TID for pain for 30 Days, Ref 0 ( Reported) Entered as Reported by: Melquiades Westfall on 10/24/181940 Last Taken: UNKNOWN on Unknown Date & Time Last Action: Converted on 10/24 by RADHAMES LESTER MD Scheduled PRN Baclofen (Baclofen) 10 Mg Tablet, 10 MG PO PRN Q6HRS PRN for PAIN, #30 Ref 0 ( Reported) Entered as Reported by: Melquiades Westfall on 10/24/181940 Last Taken: UNKNOWN on Unknown Date & Time Last Action: Continued on 10/24 by RADHAMES LESTER MD Gabapentin (Gabapentin) 600 Mg Tablet, 1,200 MG PO HS PRN for nerve pain, ( Reported) Entered as Reported by: Melquiades Westfall on 10/24/181940 Last Taken: UNKNOWN on Unknown Date & Time Last Action: Converted on 10/24 by RADHAMES LESTER MD Hydromorphone Hcl (Hydromorphone Hcl) 8 Mg Tablet, 8 MG PO PRN Q12HRS PRN for PAIN, (Reported) Entered as Reported by: Melquiades Westfall on 10/24/181940 Last Taken: UNKNOWN on Unknown Date & Time Last Action: Converted on 10/24 by RADHAMES LESETR MD Tizanidine Hcl (Tizanidine Hcl) 4 Mg Tablet, 6 MG PO TID PRN for MUSCLE SPASMS, (Reported) Entered as Reported by: Melquiades Westfall on 10/24/181940 Last Taken: UNKNOWN on Unknown Date & Time Last Action: Converted on 10/24 by RADHAMES LESTER MD Tizanidine Hcl (Tizanidine Hcl) 6 Mg Capsule, 12 MG PO HS PRN for MUSCLE SPASMS, (Reported) Entered as Reported by: Melquiades Westfall on 10/24/181940 Last Taken: UNKNOWN on Unknown Date & Time Last Action: Converted on 10/24 by RADHAMES LESTER MD Zolpidem Tartrate (Zolpidem Tartrate Er) 12.5 Mg Tab.mphase, 12.5 MG PO PRN QHS PRN for INSOMNIA, Ref 0 (Reported) Entered as Reported by: Melquiades Westfall on 10/24/181940 Last Taken: UNKNOWN on Unknown Date & Time Last Action: Converted on 10/24 by MD KRISTEN SIMONS NIAL K III DO Oct 27, 2018 12:30
[2018-10-27] MEDS: BACLOFEN 10 MG TABLET. PO PRN ×2 (14:33→20:40)
[2018-10-27 15:18] VITALS: BP 139/83
[2018-10-27 19:40] VITALS: BP 192/88
[2018-10-27] MEDS: hydrALAZINE 20 MG/ML VIAL. IVP PRN (19:46)
[2018-10-27] MEDS: CITALOPRAM 20 MG TABLET. PO SCH (20:38)
[2018-10-27] MEDS: CETIRIZINE HCL 10 MG TABLET. PO SCH (20:40)
[2018-10-27] MEDS: ZOLPIDEM 5 MG TABLET. PO PRN (20:40)
[2018-10-27 23:00] VITALS: BP 145/79
[2018-10-28] MEDS: IV 1/2 NORMAL SALINE 1,000 ML IV SCH ×2 (02:30→12:30)
[2018-10-28 03:45] VITALS: BP 132/64
[2018-10-28 04:04] LABS: BASO % 0 % (0-3); EOS # 0.2 x10^3/uL (0.0-0.7); EOS % 3 % (0-3); HEMATOCRIT 35.8 % (36.0-47.0); HEMOGLOBIN 11.6 g/dL (12.0-15.5); LYMPH # 3.3 x10^3/uL (1.0-4.8); LYMPH % 44 % (24-48); MEAN CORPUSCULAR HEMOGLOBIN 27 pg (25-35); MEAN CORPUSCULAR HGB CONC 32 g/dL (31-37); MEAN CORPUSCULAR VOLUME 85 fL (79-100); MONO # 0.6 x10^3/uL (0.0-1.1); MONO % 8 % (0-9); NEUT # 3.3 x10^3uL (1.8-7.7); NEUT % 44 % (31-73); PLATELET COUNT 342 x10^3/uL (140-400); RED BLOOD COUNT 4.22 x10^6/uL (3.50-5.40); RED CELL DISTRIBUTION WIDTH 18.9 % (11.5-14.5); WHITE BLOOD COUNT 7.4 x10^3/uL (4.0-11.0)
[2018-10-28 04:10] LABS: CALCIUM 8.5 mg/dL (8.5-10.1); CREATININE 1.3 mg/dL (0.6-1.0); GFR 43.7; POTASSIUM 3.4 mmol/L (3.5-5.1)
[2018-10-28] MEDS: ACETAMINOPHEN 325 MG TABLET. PO PRN ×2 (05:27→14:04)
[2018-10-28] MEDS: HEPARIN for SUB-Q USE 5,000 UNIT/ML VIAL. SQ SCH ×2 (05:31→14:00)
[2018-10-28 07:56] VITALS: BP 166/86
--- NOTE | 2018-10-28 08:07 | PDOC ---
PROGRESS NOTES Chief Complaint Chief Complaint CC: Diarrhea & Fatigue for 4 days [employer] History of Present Illness History of Present Illness Pt seen and examined this morning, resting comfortably in bed Head ache this morning better Tolerating soft diet, denies N/V States she had a few episodes of diarrhea yesterday and this morning. Plan: D/c home to care of her daughter with outpatient PT - aquatic therapy and OT Vitals Vitals Vital Signs Date Time Temp Pulse Resp B/P (MAP) Pulse Ox O2 Delivery O2 Flow Rate FiO2 10/28/18 07:56 98.7 75 16 166/86 (112) 97 Room Air 98.7 Physical Exam General: Alert, Oriented X3, Cooperative, No acute distress Heart: Regular rate (SR/SB), Normal S1, Normal S2, No murmurs Lungs: Clear, Other (No crackles or wheezing) Abdomen: Normal bowel sounds, Soft, No tenderness Extremities: No clubbing, No cyanosis, No edema Skin: No rashes, No breakdown, No significant lesion Labs LABS Laboratory Tests Test 10/28/18 03:15 White Blood Count 7.4 x10^3/uL (4.0-11.0) Red Blood Count 4.22 x10^6/uL (3.50-5.40) Hemoglobin 11.6 g/dL (12.0-15.5) Hematocrit 35.8 % (36.0-47.0) Mean Corpuscular Volume 85 fL (79-100) Mean Corpuscular Hemoglobin 27 pg (25-35) Mean Corpuscular Hemoglobin Concent 32 g/dL (31-37) Red Cell Distribution Width 18.9 % (11.5-14.5) Platelet Count 342 x10^3/uL (140-400) Neutrophils (%) (Auto) 44 % (31-73) Lymphocytes (%) (Auto) 44 % (24-48) Monocytes (%) (Auto) 8 % (0-9) Eosinophils (%) (Auto) 3 % (0-3) Basophils (%) (Auto) 0 % (0-3) Neutrophils # (Auto) 3.3 x10^3uL (1.8-7.7) Lymphocytes # (Auto) 3.3 x10^3/uL (1.0-4.8) Monocytes # (Auto) 0.6 x10^3/uL (0.0-1.1) Eosinophils # (Auto) 0.2 x10^3/uL (0.0-0.7) Basophils # (Auto) 0.0 x10^3/uL (0.0-0.2) Sodium Level 140 mmol/L (136-145) Potassium Level 3.4 mmol/L (3.5-5.1) Chloride Level 104 mmol/L (98-107) Carbon Dioxide Level 26 mmol/L (21-32) Anion Gap 10 (6-14) Blood Urea Nitrogen 19 mg/dL (7-20) Creatinine 1.3 mg/dL (0.6-1.0) Estimated GFR (Cockcroft-Gault) 43.7 Glucose Level 94 mg/dL (70-99) Calcium Level 8.5 mg/dL (8.5-10.1) Assessment and Plan Assessmemt and Plan Problems Medical Problems: (1) Bradycardia Status: Acute (2) Dehydration Status: Acute (3) Nausea vomiting and diarrhea Status: Acute Comment Review of Relevant I have reviewed the following items yari (where applicable) has been applied. Labs Laboratory Tests Test 10/28/18 03:15 White Blood Count 7.4 x10^3/uL (4.0-11.0) Red Blood Count 4.22 x10^6/uL (3.50-5.40) Hemoglobin 11.6 g/dL (12.0-15.5) Hematocrit 35.8 % (36.0-47.0) Mean Corpuscular Volume 85 fL (79-100) Mean Corpuscular Hemoglobin 27 pg (25-35) Mean Corpuscular Hemoglobin Concent 32 g/dL (31-37) Red Cell Distribution Width 18.9 % (11.5-14.5) Platelet Count 342 x10^3/uL (140-400) Neutrophils (%) (Auto) 44 % (31-73) Lymphocytes (%) (Auto) 44 % (24-48) Monocytes (%) (Auto) 8 % (0-9) Eosinophils (%) (Auto) 3 % (0-3) Basophils (%) (Auto) 0 % (0-3) Neutrophils # (Auto) 3.3 x10^3uL (1.8-7.7) Lymphocytes # (Auto) 3.3 x10^3/uL (1.0-4.8) Monocytes # (Auto) 0.6 x10^3/uL (0.0-1.1) Eosinophils # (Auto) 0.2 x10^3/uL (0.0-0.7) Basophils # (Auto) 0.0 x10^3/uL (0.0-0.2) Sodium Level 140 mmol/L (136-145) Potassium Level 3.4 mmol/L (3.5-5.1) Chloride Level 104 mmol/L (98-107) Carbon Dioxide Level 26 mmol/L (21-32) Anion Gap 10 (6-14) Blood Urea Nitrogen 19 mg/dL (7-20) Creatinine 1.3 mg/dL (0.6-1.0) Estimated GFR (Cockcroft-Gault) 43.7 Glucose Level 94 mg/dL (70-99) Calcium Level 8.5 mg/dL (8.5-10.1) Laboratory Tests Test 10/28/18 03:15 White Blood Count 7.4 x10^3/uL (4.0-11.0) Red Blood Count 4.22 x10^6/uL (3.50-5.40) Hemoglobin 11.6 g/dL (12.0-15.5) Hematocrit 35.8 % (36.0-47.0) Mean Corpuscular Volume 85 fL (79-100) Mean Corpuscular Hemoglobin 27 pg (25-35) Mean Corpuscular Hemoglobin Concent 32 g/dL (31-37) Red Cell Distribution Width 18.9 % (11.5-14.5) Platelet Count 342 x10^3/uL (140-400) Neutrophils (%) (Auto) 44 % (31-73) Lymphocytes (%) (Auto) 44 % (24-48) Monocytes (%) (Auto) 8 % (0-9) Eosinophils (%) (Auto) 3 % (0-3) Basophils (%) (Auto) 0 % (0-3) Neutrophils # (Auto) 3.3 x10^3uL (1.8-7.7) Lymphocytes # (Auto) 3.3 x10^3/uL (1.0-4.8) Monocytes # (Auto) 0.6 x10^3/uL (0.0-1.1) Eosinophils # (Auto) 0.2 x10^3/uL (0.0-0.7) Basophils # (Auto) 0.0 x10^3/uL (0.0-0.2) Sodium Level 140 mmol/L (136-145) Potassium Level 3.4 mmol/L (3.5-5.1) Chloride Level 104 mmol/L (98-107) Carbon Dioxide Level 26 mmol/L (21-32) Anion Gap 10 (6-14) Blood Urea Nitrogen 19 mg/dL (7-20) Creatinine 1.3 mg/dL (0.6-1.0) Estimated GFR (Cockcroft-Gault) 43.7 Glucose Level 94 mg/dL (70-99) Calcium Level 8.5 mg/dL (8.5-10.1) Microbiology 10/24/18 Fecal Leukocyte Stain - Final, Complete 10/24/18 Urine Culture - Final, Complete 10/24/18 Urine Culture Result 1 (JOANNE) - Final, Complete Medications Current Medications Sodium Chloride 1,000 ml @ 1,000 mls/hr 1X ONCE IV Last administered on at 14:26; Start 10/24/18 at 13:45; Stop 10/24/18 at 14:44; Status DC Ondansetron HCl (Zofran) 4 mg 1X ONCE IV Last administered on 10/24/18at 14:28 ; Start 10/24/18 at 13:45; Stop 10/24/18 at 14:06; Status DC Famotidine (Pepcid Vial) 20 mg 1X ONCE IVP Last administered on 10/24/18at 14: 29; Start 10/24/18 at 13:45; Stop 10/24/18 at 14:06; Status DC Sodium Chloride 1,000 ml @ 1,000 mls/hr 1X ONCE IV Last administered on at 14:33; Start 10/24/18 at 14:30; Stop 10/24/18 at 15:29; Status DC Ondansetron HCl (Zofran) 4 mg PRN Q8HRS PRN IV NAUSEA/VOMITING Last administered on 10/25/18at 09:06; Start 10/24/18 at 14:30; Stop 10/25/18 at 14:29 ; Status DC Amlodipine Besylate (Norvasc) 10 mg DAILY PO Last administered on 10/27/18 08: 38; Start 10/24/18 at 16:30 Hydralazine HCl (Apresoline Inj) 10 mg PRN Q4HRS PRN IVP ELEVATED BP, SEE COMMENTS Last administered on 10/27/18 19:46; Start 10/24/18 at 16:30 Lisinopril (Prinivil) 20 mg DAILY PO Last administered on 10/27/18 08:38; Start 10/25/18 at 09:00 Sodium Chloride 1,000 ml @ 100 mls/hr Q10H IV Last administered on 10/26/18 11:24; Start 10/24/18 at 18:30 Heparin Sodium (Porcine) (Heparin Sodium) 5,000 unit Q8HRS SQ Last administered on 10/28/18 05:31; Start 10/24/18 at 22:00 Baclofen (Lioresal) 10 mg PRN Q6HRS PRN PO MUSCLE PAIN Last administered on 20:40; Start 10/24/18 at 20:15 Buspirone HCl (Buspar) 10 mg TID PO Last administered on 10/27/18 20:39; Start 10/24/18 at 21:00 Cetirizine HCl (ZyrTEC) 10 mg HS PO Last administered on 10/27/18 20:40; Start 10/24/18 at 21:00 Doxepin HCl (SINequan) 6 mg HS PO ; Start 10/24/18 at 21:00; Stop 10/26/18 at 17 :31; Status DC Fentanyl (Duragesic 12mcg/ Hr Patch) 1 patch Q3DAYS TD Last administered on 08:40; Start 10/27/18 at 09:00 Nystatin (Nystop) 1 nathan BID TP Last administered on 10/27/18 20:49; Start at 21:00 Citalopram Hydrobromide (CeleXA) 40 mg QHS PO Last administered on 10/27/18 20 :38; Start 10/24/18 at 21:00 Gabapentin (Neurontin) 1,200 mg PRN QHS PRN PO NERVE PAIN Last administered on 10/25/18 21:11; Start 10/24/18 at 21:00 Gabapentin (Neurontin) 600 mg TID PO Last administered on 10/27/18 20:40; Start 10/24/18 at 21:00 Hydromorphone HCl (Dilaudid) 8 mg PRN Q12HRS PRN PO PAIN Last administered on 07:38; Start 10/24/18 at 20:15; Stop 10/25/18 at 12:02; Status DC Pantoprazole Sodium (Protonix) 40 mg DAILYAC PO Last administered on 10/27/18 08:39; Start 10/25/18 at 07:30 Pregabalin (Lyrica) 150 mg TID PO Last administered on 10/27/18 20:40; Start 10/24/18 at 21:00 Tizanidine HCl (Zanaflex) 6 mg PRN Q8HRS PRN PO MUSCLE SPASMS Last administered on 10/27/18 20:39; Start 10/24/18 at 20:15 Tizanidine HCl (Zanaflex) 12 mg PRN QHS PRN PO MUSCLE SPASMS Last administered on 10/26/18 20:57; Start 10/24/18 at 20:15 Zolpidem Tartrate (Ambien) 5 mg PRN QHS PRN PO INSOMNIA MR X1 Last administered on 10/27/18 20:40; Start 10/24/18 at 20:15 Acetaminophen (Tylenol) 650 mg PRN Q6HRS PRN PO MILD PAIN Last administered on 10/28/18 05:27; Start 10/25/18 at 04:00 Hydromorphone HCl (Dilaudid) 4 mg PRN Q6HRS PRN PO MODERATE - SEVERE PAIN Last administered on 10/27/18 14:35; Start 10/25/18 at 12:15; Stop 10/27/18 at 17:12 ; Status DC Prochlorperazine Edisylate (Compazine) 10 mg 1X ONCE IV Last administered on 12:31; Start 10/25/18 at 12:15; Stop 10/25/18 at 12:16; Status DC Sodium Chloride (Saline Mist Nasal) 1 nathan PRN Q1HR PRN NS NASAL CONGESTION Last administered on 4/18/19at 13:59; Start 10/25/18 at 12:30 Ketorolac Tromethamine (Toradol 15mg Vial) 15 mg 1X ONCE IV Last administered on 10/25/18at 15:05; Start 10/25/18 at 14:30; Stop 10/25/18 at 14:37; Status DC Ketorolac Tromethamine (Toradol 30mg Vial) 30 mg 1X ONCE IV ; Start 10/25/18 at 20:30; Stop 10/25/18 at 20:31; Status DC Sumatriptan Succinate (Imitrex) 100 mg 1X ONCE PO Last administered on at 20:37; Start 10/25/18 at 20:30; Stop 10/25/18 at 20:31; Status DC Sumatriptan Succinate (Imitrex) 100 mg PRN Q2HR PRN PO MIGRAINE HEADACHE; Start 10/26/18 at 13:15 Hydromorphone HCl (Dilaudid) 4 mg PRN BID PRN PO MODERATE - SEVERE PAIN Last administered on 10/27/18at 20:39; Start 10/27/18 at 17:15 Active Scripts Active Reported Lyrica (Pregabalin) 150 Mg Capsule 150 Mg PO TID 30 Days Doxepin Hcl 10 Mg Capsule 6 Mg PO HS Escitalopram Oxalate 20 Mg Tablet 20 Mg PO DAILYHS Protonix (Pantoprazole Sodium) 20 Mg Tablet.dr 40 Mg PO DAILY Tizanidine Hcl 6 Mg Capsule 12 Mg PO HS PRN Tizanidine Hcl 4 Mg Tablet 6 Mg PO TID PRN Cetirizine Hcl 10 Mg Tablet 10 Mg PO HS Nystatin 15 Gm Powder 1 Nathan TP BID Cyanocobalamin Injection (Cyanocobalamin (Vitamin B-12)) 1,000 Mcg/1 Ml Vial 1, 000 Mcg IJ QMONTH FENTANYL 12mcg/hr (Fentanyl) 1 Each Patch.td72 1 Patch TP Q3DAYS Zolpidem Tartrate Er (Zolpidem Tartrate) 12.5 Mg Tab.mphase 12.5 Mg PO PRN QHS PRN Hydromorphone Hcl 8 Mg Tablet 8 Mg PO PRN Q12HRS PRN Gabapentin 600 Mg Tablet 1,200 Mg PO HS PRN Gabapentin 600 Mg Tablet 600 Mg PO TID Baclofen 10 Mg Tablet 10 Mg PO PRN Q6HRS PRN Buspirone Hcl 10 Mg Tablet 10 Mg PO TID Vitals/I & O Vital Sign - Last 24 Hours 10/27/18 10/27/18 10/27/18 10/27/18 08:38 08:38 08:40 11:24 Temp 97.7 97.7 Pulse 60 60 59 Resp 18 16 B/P (MAP) 137/73 137/73 98/50 (66) Pulse Ox 98 99 O2 Delivery Room Air Room Air 10/27/18 10/27/18 10/27/18 10/27/18 12:54 15:18 19:40 19:46 Temp 98.1 98.5 98.1 98.5 Pulse 88 92 89 Resp 16 18 B/P (MAP) 139/83 (101) 192/88 (122) 192/88 Pulse Ox 99 98 97 O2 Delivery Room Air Room Air Room Air 10/27/18 10/27/18 10/28/18 10/28/18 19:58 23:00 03:45 07:56 Temp 98.1 97.9 98.7 98.1 97.9 98.7 Pulse 60 87 75 Resp 18 18 16 B/P (MAP) 145/79 (101) 132/64 (86) 166/86 (112) Pulse Ox 98 98 97 O2 Delivery Room Air Room Air Room Air Room Air Intake and Output 10/27/18 10/27/18 10/28/18 15:00 23:00 07:00 Intake Total 500 ml 120 ml Output Total 2400 ml 2500 ml Balance -2400 ml -2000 ml 120 ml CARLEE HUTCHISON MD Oct 28, 2018 08:07
[2018-10-28] MEDS: GABAPENTIN 300 MG CAPSULE. PO SCH ×2 (08:10→14:04)
[2018-10-28] MEDS: PREGABALIN 75 MG CAPSULE PO SCH ×2 (08:11→14:03)
[2018-10-28] MEDS: LISINOPRIL 20 MG TABLET PO SCH (08:12)
[2018-10-28] MEDS: PANTOPRAZOLE 40 MG TABLET.DR. PO SCH (08:12)
[2018-10-28] MEDS: amLODIPine BESYLATE 10 MG TABLET PO SCH (08:12)
[2018-10-28] MEDS: busPIRone 10 MG TABLET. PO SCH ×2 (08:12→14:03)
[2018-10-28] MEDS: tiZANidine 4 MG TABLET. PO PRN (08:13)
[2018-10-28] MEDS: HYDROmorphone 4 MG TABLET PO PRN ×2 (08:13→14:04)
[2018-10-28] MEDS: NYSTATIN TOPICAL POWDER 15GM BOTTLE. TP SCH (08:39)
[2018-10-28 10:02] VITALS: BP 95/47
--- NOTE | 2018-10-28 11:21 | PDOC3 ---
Discharge Summary Visit Information Date of Admission: Oct 24, 2018 Date of Discharge: Oct 28, 2018 Admitting Diagnosis: Bradycardia, BENDER, Diarrhea Final Diagnosis Problems Medical Problems: (1) Bradycardia Status: Acute (2) Dehydration Status: Acute (3) Nausea vomiting and diarrhea Status: Acute Brief Hospital Course Allergies Allergies Coded Allergies Type Severity Reaction Last Updated Verified Penicillins Allergy Intermediate 10/24/18 Yes codeine Allergy Intermediate 10/24/18 Yes doxycycline Allergy Intermediate 10/24/18 Yes meperidine Allergy Intermediate 10/24/18 Yes Vital Signs Vital Signs Date Time Temp Pulse Resp B/P (MAP) Pulse Ox O2 Delivery O2 Flow Rate FiO2 10/28/18 10:02 98.2 67 12 95/47 (63) 94 Room Air 98.2 Lab Results Laboratory Tests Test 10/28/18 03:15 White Blood Count 7.4 x10^3/uL (4.0-11.0) Red Blood Count 4.22 x10^6/uL (3.50-5.40) Hemoglobin 11.6 g/dL (12.0-15.5) Hematocrit 35.8 % (36.0-47.0) Mean Corpuscular Volume 85 fL (79-100) Mean Corpuscular Hemoglobin 27 pg (25-35) Mean Corpuscular Hemoglobin Concent 32 g/dL (31-37) Red Cell Distribution Width 18.9 % (11.5-14.5) Platelet Count 342 x10^3/uL (140-400) Neutrophils (%) (Auto) 44 % (31-73) Lymphocytes (%) (Auto) 44 % (24-48) Monocytes (%) (Auto) 8 % (0-9) Eosinophils (%) (Auto) 3 % (0-3) Basophils (%) (Auto) 0 % (0-3) Neutrophils # (Auto) 3.3 x10^3uL (1.8-7.7) Lymphocytes # (Auto) 3.3 x10^3/uL (1.0-4.8) Monocytes # (Auto) 0.6 x10^3/uL (0.0-1.1) Eosinophils # (Auto) 0.2 x10^3/uL (0.0-0.7) Basophils # (Auto) 0.0 x10^3/uL (0.0-0.2) Sodium Level 140 mmol/L (136-145) Potassium Level 3.4 mmol/L (3.5-5.1) Chloride Level 104 mmol/L (98-107) Carbon Dioxide Level 26 mmol/L (21-32) Anion Gap 10 (6-14) Blood Urea Nitrogen 19 mg/dL (7-20) Creatinine 1.3 mg/dL (0.6-1.0) Estimated GFR (Cockcroft-Gault) 43.7 Glucose Level 94 mg/dL (70-99) Calcium Level 8.5 mg/dL (8.5-10.1) Laboratory Tests Test 10/28/18 03:15 White Blood Count 7.4 x10^3/uL (4.0-11.0) Red Blood Count 4.22 x10^6/uL (3.50-5.40) Hemoglobin 11.6 g/dL (12.0-15.5) Hematocrit 35.8 % (36.0-47.0) Mean Corpuscular Volume 85 fL (79-100) Mean Corpuscular Hemoglobin 27 pg (25-35) Mean Corpuscular Hemoglobin Concent 32 g/dL (31-37) Red Cell Distribution Width 18.9 % (11.5-14.5) Platelet Count 342 x10^3/uL (140-400) Neutrophils (%) (Auto) 44 % (31-73) Lymphocytes (%) (Auto) 44 % (24-48) Monocytes (%) (Auto) 8 % (0-9) Eosinophils (%) (Auto) 3 % (0-3) Basophils (%) (Auto) 0 % (0-3) Neutrophils # (Auto) 3.3 x10^3uL (1.8-7.7) Lymphocytes # (Auto) 3.3 x10^3/uL (1.0-4.8) Monocytes # (Auto) 0.6 x10^3/uL (0.0-1.1) Eosinophils # (Auto) 0.2 x10^3/uL (0.0-0.7) Basophils # (Auto) 0.0 x10^3/uL (0.0-0.2) Sodium Level 140 mmol/L (136-145) Potassium Level 3.4 mmol/L (3.5-5.1) Chloride Level 104 mmol/L (98-107) Carbon Dioxide Level 26 mmol/L (21-32) Anion Gap 10 (6-14) Blood Urea Nitrogen 19 mg/dL (7-20) Creatinine 1.3 mg/dL (0.6-1.0) Estimated GFR (Cockcroft-Gault) 43.7 Glucose Level 94 mg/dL (70-99) Calcium Level 8.5 mg/dL (8.5-10.1) Brief Hospital Course Ms. Ortiz is a 48 old [female with multiple medical problems who presented with [diarrhea and weakness and was noted to be bradycardic She was admitted we consult cardiology and GI We did cardiac monitoring and serial enzymes Today when I saw the patient she was much better I discussed case with her nurse and explained if she is doing [place] afternoon we plan to discharge Romy cardiology is recommending a possible event monitor on discharge This morning her heart tones are normal her lungs are clear her abdomen was soft and obese extremities trace edema Head ache this morning better Tolerating soft diet, denies N/V States she had a few episodes of diarrhea yesterday and this morning. Plan: D/c home to care of her daughter with outpatient PT - aquatic therapy and OT D/w her pain management physician to downgrade her Total discharge time 33 minutes Discharge Information Condition at Discharge: Improved Follow Up: Weeks Disposition/Orders: D/C to Home Scheduled Buspirone Hcl (Buspirone Hcl) 10 Mg Tablet, 10 MG PO TID for depression, ( Reported) Entered as Reported by: Melquiades Westfall on 10/24/181940 Last Taken: UNKNOWN on Unknown Date & Time Last Action: Continued on 10/24 by RADHAMES LESTER MD Cetirizine Hcl (Cetirizine Hcl) 10 Mg Tablet, 10 MG PO HS for allergies, ( Reported) Entered as Reported by: Melquiades Westfall on 10/24/181940 Last Taken: UNKNOWN on Unknown Date & Time Last Action: Continued on 10/24 by RADHAMES LESTER MD Cyanocobalamin (Vitamin B-12) (Cyanocobalamin Injection) 1,000 Mcg/1 Ml Vial, 1, 000 MCG IJ QMONTH for supplement, (Reported) Entered as Reported by: Melquiades Westfall on 10/24/181940 Last Taken: UNKNOWN on Unknown Date & Time Last Action: New Order on 10/24 by Melquiades Westfall Doxepin Hcl (Doxepin Hcl) 10 Mg Capsule, 6 MG PO HS for pain, (Reported) Entered as Reported by: Melquiades Westfall on 10/24/181940 Last Taken: UNKNOWN on Unknown Date & Time Last Action: Continued on 10/24 by RADHAMES LESTER MD Escitalopram Oxalate (Escitalopram Oxalate) 20 Mg Tablet, 20 MG PO DAILYhs for ANTI-DEPRESSANT, Ref 0 (Reported) Entered as Reported by: Melquiades Westfall on 10/24/181940 Last Taken: UNKNOWN on Unknown Date & Time Last Action: Converted on 10/24 by RADHAMES LESTER MD Fentanyl (FENTANYL 12mcg/hr) 1 Each Patch.td72, 1 PATCH TP Q3DAYS for pain, #10 (Reported) Entered as Reported by: Melquiades Westfall on 10/24/181940 Last Taken: UNKNOWN on Unknown Date & Time Last Action: Continued on 10/24 by RADHAMES LESTER MD Gabapentin (Gabapentin) 600 Mg Tablet, 600 MG PO TID for NEUROGENIC PAIN, ( Reported) Entered as Reported by: Melquiades Westfall on 10/24/181940 Last Taken: UNKNOWN on Unknown Date & Time Last Action: Converted on 10/24 by RADHAMES LESTER MD Nystatin (Nystatin) 15 Gm Powder, 1 ALIVIA TP BID for yeast, #1 (Reported) Entered as Reported by: Melquiades Westfall on 10/24/181940 Last Taken: UNKNOWN on Unknown Date & Time Last Action: Continued on 10/24 by RADHAMES LESTER MD Pantoprazole Sodium (Protonix) 20 Mg Tablet.dr, 40 MG PO DAILY for gi, (Reported ) Entered as Reported by: Melquiades Westfall on 10/24/181940 Last Taken: UNKNOWN on Unknown Date & Time Last Action: Converted on 10/24 by RADHAMES LESTER MD Pregabalin (Lyrica) 150 Mg Capsule, 150 MG PO TID for pain for 30 Days, Ref 0 ( Reported) Entered as Reported by: Melquiades Westfall on 10/24/181940 Last Taken: UNKNOWN on Unknown Date & Time Last Action: Converted on 10/24 by RADHAMES LESTER MD Scheduled PRN Baclofen (Baclofen) 10 Mg Tablet, 10 MG PO PRN Q6HRS PRN for PAIN, #30 Ref 0 ( Reported) Entered as Reported by: Melquiades Westfall on 10/24/181940 Last Taken: UNKNOWN on Unknown Date & Time Last Action: Continued on 10/24 by RADHAMES LESTER MD Gabapentin (Gabapentin) 600 Mg Tablet, 1,200 MG PO HS PRN for nerve pain, ( Reported) Entered as Reported by: Melquiades Westfall on 10/24/181940 Last Taken: UNKNOWN on Unknown Date & Time Last Action: Converted on 10/24 by RADHAMES LESTER MD Hydromorphone Hcl (Hydromorphone Hcl) 8 Mg Tablet, 8 MG PO PRN Q12HRS PRN for PAIN, (Reported) Entered as Reported by: Melquiades Westfall on 10/24/181940 Last Taken: UNKNOWN on Unknown Date & Time Last Action: Converted on 10/24 by RADHAMES LESTER MD Tizanidine Hcl (Tizanidine Hcl) 4 Mg Tablet, 6 MG PO TID PRN for MUSCLE SPASMS, (Reported) Entered as Reported by: Melquiades Westfall on 10/24/181940 Last Taken: UNKNOWN on Unknown Date & Time Last Action: Converted on 10/24 by RADHAMES LESTER MD Tizanidine Hcl (Tizanidine Hcl) 6 Mg Capsule, 12 MG PO HS PRN for MUSCLE SPASMS, (Reported) Entered as Reported by: Melquiades Westfall on 10/24/181940 Last Taken: UNKNOWN on Unknown Date & Time Last Action: Converted on 10/24 by RADHAMES LESTER MD Zolpidem Tartrate (Zolpidem Tartrate Er) 12.5 Mg Tab.mphase, 12.5 MG PO PRN QHS PRN for INSOMNIA, Ref 0 (Reported) Entered as Reported by: Melquiades Westfall on 10/24/181940 Last Taken: UNKNOWN on Unknown Date & Time Last Action: Converted on 10/24 by MD FOSTER SIMONS CHRISTOPHER S MD Oct 28, 2018 11:21
[2018-10-28] MEDS: BACLOFEN 10 MG TABLET. PO PRN (14:04)
[2018-10-28 15:42] VITALS: BP 142/67
--- NOTE | 2018-10-28 16:19 | NUR ---
Discharge Note: [facility] Discharge instructions and discharge home medications reviewed with [[email or web address]] and a copy given. All questions have been answered and understanding verbalized. Instructions and handouts were given. Discontinued lines and drains. Patient discharged to home self care.
== END 2018-10-28 16:21 | disposition home or self-care (01) | DRG 641 ==
LOC: ER 13:30 → 2 SOUTH 14:29
PROVIDERS: ADMIT Internal Medicine; ATTEND Internal Medicine
DX: E86.0 Dehydration (principal); K90.9 Intestinal malabsorption, unspecified; Z68.42 Body mass index [BMI] 45.0-49.9, adult; I16.0 Hypertensive urgency; E66.01 Morbid (severe) obesity due to excess calories; M19.90 Unspecified osteoarthritis, unspecified site; I10 Essential (primary) hypertension; G89.29 Other chronic pain; Z88.1 Allergy status to other antibiotic agents; Z88.5 Allergy status to narcotic agent; Z88.0 Allergy status to penicillin; Z88.8 Allergy status to other drugs, medicaments and biological substances; Z98.84 Bariatric surgery status; Z82.49 Family history of ischemic heart disease and other diseases of the circulatory system; Z80.3 Family history of malignant neoplasm of breast; Z83.3 Family history of diabetes mellitus; Z82.3 Family history of stroke; Z85.3 Personal history of malignant neoplasm of breast
CPT/HCPCS: 36415; 70450; 80048; 80053; 80307; 81001; 82274; 82553; 83690; 83735; 83880; 84443; 84484; 85025; 85610; 85730; 87045; 87086; 87205; 87493; 93005; 93306; 96374; 96375; 99291; G0480; J0360; J0780; J1644; J1885; J2405; J3490; J7030; 97535